=== PATIENT | male | born 1950 | race Caucasian/White ===

== ENCOUNTER 2016-11-17 08:57 | Day surgery (SDC) | payer MEDICARE, BC ==
[~2016-11-17 08:57] MED LIST: Sodium Chloride 0.9% 10 ML Syringe FLUSH PRN
[2016-11-17] MEDS ORDERED: Sodium Chloride 0.9% 1,000 ML IV SCH (09:15)
[2016-11-17] MEDS ORDERED: Propofol 200 MG/20 ML SDV ONE (10:45)
[2016-11-17] MEDS ORDERED: Atropine 0.4 MG/ML SDV ONE (10:45)
[2016-11-17] MEDS ORDERED: Midazolam 1 MG/ML 5 ML SDV ONE (10:45)
[2016-11-17] MEDS ORDERED: Glycopyrrolate 0.2 MG/ML 2 ML SDV ONE (10:45)
--- NOTE | 2016-11-17 13:00 | OR ---
DATE OF OPERATION: 11/17/2016 PREOPERATIVE DIAGNOSIS: Gastroesophageal reflux disease. POSTOPERATIVE DIAGNOSES: 1. Gastroesophageal reflux disease. 2. Small hiatal hernia. OPERATION: Esophagogastroduodenoscopy with biopsies. COMPLICATIONS: None. DRAINS: None. SPECIMENS: Distal esophageal biopsy. ESTIMATED BLOOD LOSS: Minimal. ANESTHESIA: General propofol anesthesia. INDICATION: Mr. Adorno is a 66-year-old gentleman who is on medication for heartburn and gastroesophageal reflux disease. This seems to have gotten worse with reduced control. The above-mentioned procedure was explained. The risks, benefits, and complications were explained. The patient understood and agreed and was brought to the operating room. DESCRIPTION OF PROCEDURE: The patient was brought to the operating room and placed in a left lateral decubitus position on the operating room table. Satisfactory general propofol anesthesia was administered. A mouth guard was placed. We placed the endoscope into the oral cavity, and by direct visualization, advanced this to the second portion of the duodenum. The duodenum was then evaluated on withdrawal, which appeared normal. The duodenum appeared normal. The stomach was carefully evaluated and showed some mild erythema in the antrum, however, no other changes were identified. This may suggest mild gastritis. Next, in retroflexion maneuver, there was a Hill grade 2 GE junction with a small 1 cm sliding-type hiatal hernia. The rest of the stomach was normal. We then suctioned, decompressed the stomach, and careful evaluation of the GE junction revealed a few tongues of gastric-type mucosa, did not appear to be grossly Briseno's, however, these were biopsied at 1 cm intervals and placed together for a specimen from the distal esophagus. The Z-line was irregular. The remainder of the esophagus was normal. The endoscope was then subsequently withdrawn. There were no complications. Instrument count was correct. The patient was awoken in the OR and taken to PACU for recovery. JAIRO/JOSE /[id number]
[2016-11-17 15:10] VITALS: BP 141/81
== END 2016-11-17 12:33 | disposition home or self-care (01) ==
LOC: LB.SDS 08:57
PROVIDERS: ATTEND Surgery
DX: K31.89 Other diseases of stomach and duodenum (principal); K44.9 Diaphragmatic hernia without obstruction or gangrene; Z88.8 Allergy status to other drugs, medicaments and biological substances; Z79.899 Other long term (current) drug therapy; Z91.030 Bee allergy status
CPT/HCPCS: 43239; 88305; J0461; J2250; J2704; J7040; J3490

== ENCOUNTER 2017-01-19 02:46 | Emergency (ER) | payer MEDICARE, BC ==
[2017-01-19] MEDS ORDERED: Diltiazem 25 MG/5 ML SDV IVPUSH ONE (03:19)
[2017-01-19 03:28] VITALS: BP 142/88
[2017-01-19] MEDS ORDERED: Sodium Chloride 0.9% 1,000 ML IV SCH (03:45)
--- NOTE | 2017-01-19 17:38 | ER ---
HISTORY OF PRESENT ILLNESS: A 66-year-old male here with his with complaints of an irregular heartbeat. He tells me he feels like his heart is galloping. He is not having any chest pain. No problems with shortness of breath. The patient states that it just started during the night tonight. He did take a little smaller dose of atenolol, he has been taking atenolol to help control his heartbeat as he has a history of fast heartbeat and has had a history of atrial fibrillation once in the past. The patient has not been sick recently and states that he otherwise feels okay. PAST MEDICAL HISTORY: The patient did have a history of chest pain about 10 years ago. 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 He further tells me that after this is when he had his first episode of atrial fibrillation. The patient has never been on Coumadin. His rate has been controlled with medication. CURRENT MEDICATIONS: Zantac, atenolol, lisinopril and Nexium. PHYSICAL EXAMINATION: GENERAL APPEARANCE: The patient is awake and alert. No respiratory distress. VITAL SIGNS: Reviewed. Blood pressure initially 142/88, O2 sats are 99%, respirations 12, he is afebrile, pulse of 117. CARDIAC: Heart sounds distinct with a slightly irregular rate. No murmurs noted. LUNGS: Clear. SKIN: Warm and dry. Oral mucous membranes are moist. EXTREMITIES: The patient has no lower extremity edema. SKIN: Warm and intact on both extremities. An EKG was obtained showing atrial fibrillation. LABORATORY DATA: Today include a CBC, which is normal. Comprehensive metabolic panel was also normal. Troponin is normal. The patient was given Cardizem 20 mg IV and he converted to normal sinus rhythm almost immediately on the monitor. I did give the patient about 500 mL of IV normal saline. The patient states that his gallop and heart rhythm went away as soon as we gave him the medication, which is Cardizem. A followup EKG was obtained, this does show some atrial flutter, but the patient is totally asymptomatic at this time. DIAGNOSIS: Atrial fibrillation, converted to atrial flutter in the emergency room. The patient is now asymptomatic. TREATMENT PLAN: I advised the patient to resume his full dose of atenolol tomorrow. He will be discharged home. He does have a followup appointment on Sunday with his primary care provider, he is to keep that appointment time. Followup should be sooner in the ER if he becomes symptomatic once again. The patient has no further questions. JOSE/JOSE /[id number]
== END 2017-01-19 04:10 | disposition home or self-care (01) ==
LOC: LB.ED 02:46
DX: I48.91 Unspecified atrial fibrillation (principal); I48.92 Unspecified atrial flutter; Z98.890 Other specified postprocedural states; Z79.899 Other long term (current) drug therapy
CPT/HCPCS: 36415; 80053; 84484; 85025; 93005; 96374; 99284; 99285; J7040; J3490

== ENCOUNTER 2017-01-20 08:53 | Emergency (ER) | payer MEDICARE, BC ==
--- NOTE | 2017-01-20 09:18 | EDM.PDOC ---
ED HPI GENERAL MEDICAL PROBLEM - General Time Seen by Provider: 01/20/17 08:55 Source of Information: Reports: Patient History Limitations: Reports: No Limitations - History of Present Illness INITIAL COMMENTS - FREE TEXT/NARRATIVE: According to patient he claims that he has been feeling tired and weak for the past 2 days. He feels like his heart rate is irregular or skips beat at times and resolves. No chest pain or discomfort. No diaphoresis. No nausea or vomiting. He was seen 24 hrs ago in the emergency room. Had EKG which showed atrial fibrillation. He had complete work, up with CBC and CMP which were normal. He received a shot of Diltiazem and reassured and discharged. Pt returned to emergency room today as he still feels the missed beats.Pt claims that he is very anxious as he has had significant cardiac history with excision of left atrial myxoma in 2006. presently asymptomatic other than anxiety. Onset: Gradual Onset Date: 01/18/17 Onset Time: 03:00 Severity: Mild Improves with: Reports: None Worsens with: Reports: None Associated Symptoms: Reports: No Other Symptoms - Related Data Allergies Allergy/AdvReac Type Severity Reaction Status Date / Time celecoxib [From Celebrex] Allergy Hives Verified 01/20/17 09:23 hydrochlorothiazide Allergy Dizziness Verified 01/20/17 09:23 Home Meds: Home Meds Esomeprazole Magnesium [Nexium] 40 mg PO DAILY 12/17/15 [History] Lisinopril 20 mg PO BID 12/17/15 [History] Atenolol 25 mg PO DAILY 01/19/17 [History] Ranitidine HCl [Zantac] 300 mg PO DAILY 01/19/17 [History] Past Medical History HEENT History: Reports: Epistaxis, Impaired Vision, Other (See Below) Other HEENT History: barett's espohagus Cardiovascular History: Reports: Hypertension, NC, Other (See Below) Other Cardiovascular History: cardiac tumor Respiratory History: Reports: Other (See Below) Other Respiratory History: NOT DIAGNOSED BUT FEELS HE MIGHT HAVE A BRONCHITIS Gastrointestinal History: Reports: GERD Genitourinary History: Reports: BPH Musculoskeletal History: Reports: Other (See Below) Other Musculoskeletal History: POST POLIO LEFT LEG Neurological History: Reports: Other (See Below) Other Neuro History: POLIO LEFT LEG Psychiatric History: Reports: Anxiety - Infectious Disease History Infectious Disease History: Reports: Other (See Below) Other Infectious Disease History: UNSURE - Past Surgical History HEENT Surgical History: Reports: Other (See Below) Other HEENT Surgeries/Procedures: esophageal ablation Cardiovascular Surgical History: Reports: Other (See Below) Other Cardiovascular Surgeries/Procedures: cardiac tumor removal Male Surgical History: Reports: Circumcision Social & Family History - Family History Cardiac: Reports: Heart Failure, NC GI: Reports: GERD Musculoskeletal: Reports: Arthritis, Back pain, Chronic, Neck Pain, Chronic, Osteoarthritis Neurological: Reports: Parkinson's Psychiatric: Reports: Anxiety, Depression Endocrine/Metabolic: Reports: Hyperthyroidism Oncologic: Reports: Breast - Tobacco Use Smoking Status *Q: Former Smoker Years of Tobacco use: 10 Packs/Tins Daily: 1.5 Used Tobacco, but Quit: Yes Month Tobacco Last Used: 1980 Second Hand Smoke Exposure: No - Caffeine Use Caffeine Use: Reports: None Caffeine Use Comment: 8 WEEKS SINCE LAST CUP OF COFFEE - Alcohol Use Days Per Week of Alcohol Use: 7 Number of Drinks Per Day: 3 Total Drinks Per Week: 21 - Recreational Drug Use Recreational Drug Use: No ED ROS GENERAL - Review of Systems Review Of Systems: See Below Constitutional: Reports: Weakness. Denies: Fever, Chills, Fatigue HEENT: Denies: Rhinitis, Throat Pain, Throat Swelling Respiratory: Denies: Shortness of Breath, Wheezing, Cough, Sputum Cardiovascular: Denies: Chest Pain, Lightheadedness GI/Abdominal: Denies: Abdominal Pain, Nausea, Vomiting : Denies: Flank Pain, Frequency, Hematuria Musculoskeletal: Denies: Joint Pain, Joint Swelling Skin: Denies: Pruritis, Rash Neurological: Denies: Confusion, Dizziness, Seizure, Syncope, Gait Disturbance Psychiatric: Reports: Anxiety. Denies: Agitation, Confusion ED EXAM, GENERAL - Physical Exam Exam: See Below Exam Limited By: No Limitations General Appearance: Alert, WD/WN, No Apparent Distress, Anxious Ears: Normal External Exam, Normal Canal, Hearing Grossly Normal, Normal TMs Ear Exam: Bilateral Ear: Auricle Normal, Canal Normal, TM normal Nose: Normal Inspection, Normal Mucosa, No Blood Throat/Mouth: Normal Inspection, Normal Lips, Normal Teeth, Normal Gums, Normal Oropharynx, Normal Voice, No Airway Compromise Head: Atraumatic, Normocephalic Neck: Normal Inspection, Supple, Non-Tender, Full Range of Motion Respiratory/Chest: No Respiratory Distress, Lungs Clear, Normal Breath Sounds, No Accessory Muscle Use, Chest Non-Tender Cardiovascular: No Edema, No Gallop, No JVD, No Murmur, No Rub, Irregularly Irregular Peripheral Pulses: 2+: Radial (L), Radial (R) GI/Abdominal: Normal Bowel Sounds, Soft, Non-Tender, No Organomegaly, No Distention, No Abnormal Bruit, No Mass Extremities: Normal Inspection, Normal Range of Motion, Non-Tender, Normal Capillary Refill, No Pedal Edema Neurological: Alert, Oriented EKG INTERPRETATION EKG Date: 01/20/17 Rhythm: a-fib Rate (beats/min): 95 [place]: normal QRS: normal ST-T: normal QT: normal Course - Vital Signs Text/Narrative:: Pt was just seen sex therapist with complaints of racing heart. He was in Atril fibrillation with heart rate in 116/min. He did receive 20 mg cardizem IV and his rate dropped into 50s and felt better. Pt was monitored in the emergency room for an hour and as he felt better, was discharged home and advised to followup with his primary care provider, . Pt has appointment for 01/22/17 with him. On today's visit, his heart rate is irregularly irregular and his rate is running between 80-90s. His vital sare stable. He did have normal CBC , CMP and troponins just 24 hrs ago, hence I am not repeating it. also his is not in rapid ventricular rate. I did get his TSH which is normal. Hence I have added Cardizem CD 120mg daily. Also I have counselled him on Anticoagulation. He does agree to it. His INR is 1.1.I have started him on lovenox 90mg S/C twice daily for next 5 days. Also started him on coumadin 5mg daily for next 3 days and should have repeat INR on sunday. 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 Return to emergency room if he develops severe chest pain, tightness, nausea , vomiting, shortness of breath, Last Recorded V/S: Last Vital Signs Temp Pulse 67 01/20/17 09:44 Resp BP 132/83 01/20/17 09:44 Pulse Ox - Orders/Labs/Meds Orders: Active Orders 24 hr Category Date Time Status EKG Documentation Completion [RC] ASDIRECTED Care 01/20/17 09:10 Active INR,PT,PROTHROMBIN TIME [COAG] Stat Lab 01/20/17 09:50 Ordered TSH ULTRASENSITIVE [CHEM] Stat Lab 01/20/17 03:30 Received Diltiazem [Cardizem CD] Med 01/20/17 09:45 Ordered 120 mg PO DAILY EKG 12 Lead [EK] Routine Ther 01/20/17 09:09 Ordered Medication Orders Diltiazem HCl (Cardizem Cd) 120 mg PO DAILY LISA Last Admin: 01/20/17 09:44 Dose: 120 mg Meds: Medications Generic Name Dose Route Start Last Admin Trade Name Freq PRN Reason Stop Dose Admin Diltiazem HCl 120 mg 01/20/17 09:45 01/20/17 09:44 Cardizem Cd PO 120 mg DAILY LISA Administration Discontinued Medications Generic Name Dose Route Start Last Admin Trade Name Freq PRN Reason Stop Dose Admin Diltiazem HCl Confirm 01/20/17 09:39 01/20/17 09:44 Cardizem Cd Administered 01/20/17 09:40 Not Given Dose 120 mg .ROUTE .STK-MED ONE Departure - Departure Time of Disposition: 10:30 Disposition: Home, Self-Care 01 Condition: fair Clinical Impression: Atrial fibrillation - Discharge Information Instructions: Diltiazem tablets Referrals: PCP,None [Primary Care Provider] - Forms: ED Department Discharge Additional Instructions: Pt was just seen sex therapist with complaints of racing heart. He was in Atril fibrillation with heart rate in 116/min. He did receive 20 mg cardizem IV and his rate dropped into 50s and felt better. Pt was monitored in the emergency room for an hour and as he felt better, was discharged home and advised to followup with his primary care provider, . Pt has appointment for 01/22/17 with him. On today's visit, his heart rate is irregularly irregular and his rate is running between 80-90s. His vital sare stable. He did have normal CBC , CMP and troponins just 24 hrs ago, hence I am not repeating it. also his is not in rapid ventricular rate. I did check his TSH and is normal. Hence I have added Cardizem CD 120mg daily. Also I have counselled him on Anticoagulation. He does agree to it. His INR is 1.1.I have started him on lovenox 90mg S/C twice daily for next 5 days. Also started him on coumadin 5mg daily for next 3 days and should have repeat INR on sunday. 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 Return to emergency room if he develops severe chest pain, tightness, nausea , vomiting, shortness of breath, - Problem List & Annotations (1) Atrial fibrillation SNOMED Code(s): 43253043 Code(s): I48.91 - UNSPECIFIED ATRIAL FIBRILLATION Status: Acute Current Visit: Yes - Problem List Review Problem List Initiated/Reviewed/Updated: Yes - My Orders Last 24 Hours: My Active Orders 01/20/17 03:30 TSH ULTRASENSITIVE [CHEM] Stat 01/20/17 09:09 EKG 12 Lead [EK] Routine 01/20/17 09:10 EKG Documentation Completion [RC] ASDIRECTED 01/20/17 09:45 Diltiazem [Cardizem CD] 120 mg PO DAILY 01/20/17 09:50 INR,PT,PROTHROMBIN TIME [COAG] Stat - Assessment/Plan Last 24 Hours: My Active Orders 01/20/17 03:30 TSH ULTRASENSITIVE [CHEM] Stat 01/20/17 09:09 EKG 12 Lead [EK] Routine 01/20/17 09:10 EKG Documentation Completion [RC] ASDIRECTED 01/20/17 09:45 Diltiazem [Cardizem CD] 120 mg PO DAILY 01/20/17 09:50 INR,PT,PROTHROMBIN TIME [COAG] Stat Assessment:: atrial fibrillation Plan: Pt was just seen sex therapist with complaints of racing heart. He was in Atril fibrillation with heart rate in 116/min. He did receive 20 mg cardizem IV and his rate dropped into 50s and felt better. Pt was monitored in the emergency room for an hour and as he felt better, was discharged home and advised to followup with his primary care provider, . Pt has appointment for 01/22/17 with him. On today's visit, his heart rate is irregularly irregular and his rate is running between 80-90s. His vital sare stable. He did have normal CBC , CMP and troponins just 24 hrs ago, hence I am not repeating it. also his is not in rapid ventricular rate. His TSh done today is normal.Hence I have added Cardizem CD 120mg daily. Also I have counselled him on Anticoagulation. He does agree to it. His INR is 1.1.I have started him on lovenox 90mg S/C twice daily for next 5 days. Also started him on coumadin 5mg daily for next 3 days and should have repeat INR on sunday. 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 Return to emergency room if he develops severe chest pain, tightness, nausea , vomiting, shortness of breath,
[2017-01-20] MEDS ORDERED: Diltiazem 120 MG Cap.CD ONE ×2 (09:39→09:45)
[2017-01-20] MEDS ORDERED: Warfarin 5 MG Tab ONE ×2 (09:45→10:00)
[2017-01-20] MEDS ORDERED: Enoxaparin 80 MG/0.8 ML Syringe ONE (09:45)
[2017-01-20] MEDS ORDERED: Diltiazem 120 MG Cap.CD PO SCH (09:45)
[2017-01-20 09:49] VITALS: BP 132/83
[2017-01-20] MEDS: Enoxaparin 80 MG/0.8 ML Syringe ONE ×2 (10:09→15:40)
[2017-01-20] MEDS ORDERED: Enoxaparin 80 MG/0.8 ML Syringe SUBCUT SCH (20:00)
== END 2017-01-20 10:30 | disposition home or self-care (01) ==
LOC: LB.ED 08:53
DX: I48.91 Unspecified atrial fibrillation (principal); I10 Essential (primary) hypertension; I25.2 Old myocardial infarction; K21.9 Gastro-esophageal reflux disease without esophagitis; F41.9 Anxiety disorder, unspecified; Z88.8 Allergy status to other drugs, medicaments and biological substances; Z79.899 Other long term (current) drug therapy; Z87.891 Personal history of nicotine dependence
CPT/HCPCS: 36415; 84443; 85610; 93005; 96372; 99285; A9270; J1650; 99284

== ENCOUNTER 2017-04-09 08:09 | Emergency (ER) | payer MEDICARE, BC ==
--- NOTE | 2017-04-09 08:32 | EDM.PDOC ---
[id number]: dizziness Time Seen by Provider: 04/09/17 08:15 Source of Information: Reports: Patient History Limitations: Reports: No Limitations, Other (generalized weakness) - History of Present Illness INITIAL COMMENTS - FREE TEXT/NARRATIVE: This 66 yr male presents with dizziness and right sided tremor to hand and weakness with walking. States he took his medication this am and took shower and symptoms of dizziness became worse. States visit with biofuels production technician about 2 weeks ago and Cardizem was increased to 240 mg. He had adjustment of Atenolol and has been back on that for about 1 week ago. States some chest tightness now 835. ASA PO given. Pt took his am medications. States hx of atrial fibrillation and was medically converted with cardizem. Also recent hx of esophageal ablation and hx of GERD. States some upper GI distress now. No pain with palpation to abdomen. Abdomen is soft and non-distended. 8:44 GI cocktail ordered. Symptoms improved within 10 minutes. No more pressure to chest or abdomen. 9:18am states dizziness is better. Heart rate has been 48 to 52 in the ER. Pt has been alert and talkative. has been with him during this visit. 950 am Reviewed pt status with Dr Sanabria. Recommend D/c Atenolol if pulse remains in 40's. Discussed option with pt and and state sometimes the pulse had been up to 100 without Atenolol. Pt states he hadn't been drinking as much fluids over the last couple days and had been busy with a garage sale. IV fluids increased to bolus 500cc IV fluids. Instructed pt to take Atenolol later in day and increase fluids. Pt to follow-up with biofuels production technician Sunday. Tremor is gone, dizziness is better. Some burning continues to upper GI and throat. States GI cocktail really helps with that. out to walk their dog briefly. 10:10 Pt has been resting well with head of bed elevated. States dizziness, weakness, chest tightness and abdomen pressure are improved. Will order GI cocktail to have at home prn daily, until pt has his return appointment with the surgeon for his GERD. Will refill Atenolol 25 mg tablets and pt to cut in half and instructed to take daily in afternoon or at supper if Pulse greater than 60. Pt has BP monitor at home to check BP and pulse. Onset: Today Onset Date: 04/09/17 Onset Time: 08:00 Duration: Constant Location: Reports: Chest, Abdomen Other Treatments [employer]: home medications - Related Data Allergies Allergy/AdvReac Type Severity Reaction Status Date / Time celecoxib [From Celebrex] Allergy Hives Verified 01/20/17 09:23 hydrochlorothiazide Allergy Dizziness Verified 01/20/17 09:23 Home Meds: Home Meds Esomeprazole Magnesium [Nexium] 40 mg PO DAILY 12/17/15 [History] Ranitidine HCl [Zantac] 300 mg PO DAILY 01/19/17 [History] ALPRAZolam [Alprazolam] 0.5 mg PO BID PRN 04/09/17 [History] Atenolol 12.5 mg PO DAILY 04/09/17 [History] Diltiazem [Cardizem CD] 240 mg PO DAILY 04/09/17 [History] Lisinopril 20 mg PO BID 04/09/17 [History] Sildenafil [Revatio] 10 mg PO DAILY 04/09/17 [History] Warfarin Sodium [Jantoven] 5 mg PO DAILY 04/09/17 [History] Past Medical History HEENT History: Reports: Epistaxis, Impaired Vision, Other (See Below) Other HEENT History: barett's espohagus Cardiovascular History: Reports: Hypertension, [place], Other (See Below) Other Cardiovascular History: cardiac tumor Respiratory History: Reports: Other (See Below) Other Respiratory History: NOT DIAGNOSED BUT FEELS HE MIGHT HAVE A BRONCHITIS Gastrointestinal History: Reports: GERD Genitourinary History: Reports: BPH Musculoskeletal History: Reports: Other (See Below) Other Musculoskeletal History: POST POLIO LEFT LEG Neurological History: Reports: Other (See Below) Other Neuro History: POLIO LEFT LEG Psychiatric History: Reports: Anxiety - Infectious Disease History Infectious Disease History: Reports: Other (See Below) Other Infectious Disease History: UNSURE - Past Surgical History HEENT Surgical History: Reports: Other (See Below) Other HEENT Surgeries/Procedures: esophageal ablation Cardiovascular Surgical History: Reports: Other (See Below) Other Cardiovascular Surgeries/Procedures: cardiac tumor removal Male Surgical History: Reports: Circumcision Social & Family History - Family History Cardiac: Reports: Heart Failure, AR GI: Reports: GERD Musculoskeletal: Reports: Arthritis, Back pain, Chronic, Neck Pain, Chronic, Osteoarthritis Neurological: Reports: Parkinson's Psychiatric: Reports: Anxiety, Depression Endocrine/Metabolic: Reports: Hyperthyroidism Oncologic: Reports: Breast - Tobacco Use Smoking Status *Q: Former Smoker Years of Tobacco use: 10 Packs/Tins Daily: 1.5 Used Tobacco, but Quit: Yes Month Tobacco Last Used: 1980 Second Hand Smoke Exposure: No - Caffeine Use Caffeine Use: Reports: None Caffeine Use Comment: 8 WEEKS SINCE LAST CUP OF COFFEE - Alcohol Use Days Per Week of Alcohol Use: 7 Number of Drinks Per Day: 3 Total Drinks Per Week: 21 - Recreational Drug Use Recreational Drug Use: No ED ROS GENERAL - Review of Systems Review Of Systems: See Below Constitutional: Denies: Fever, Chills HEENT: Reports: Glasses Respiratory: Denies: Shortness of Breath, Cough Cardiovascular: Reports: Lightheadedness GI/Abdominal: Reports: Abdominal Pain, Diarrhea, Other (states loose stool last night, states has been his normal lately for last 2 months, takes Maalox and tums at home, usually every day.). Denies: Constipation, Distension, Nausea Musculoskeletal: Reports: Other (tremor right hand) Skin: Reports: No Symptoms Neurological: Reports: Dizziness Psychiatric: Reports: No Symptoms Hematologic/Lymphatic: Reports: No Symptoms Immunologic: Reports: No Symptoms ED EXAM, GENERAL - Physical Exam Exam: See Below Exam Limited By: No Limitations General Appearance: Alert, No Apparent Distress Eye Exam: Left Eye: PERRL Ears: Normal External Exam, Normal Canal, Other (Pressure to ears) Nose: Normal Inspection Head: Atraumatic Neck: Normal Inspection Respiratory/Chest: No Respiratory Distress, Lungs Clear Cardiovascular: Regular Rate, Rhythm, No Edema, Bradycardia GI/Abdominal: Normal Bowel Sounds, Non-Tender, No Distention Extremities: Normal Inspection, Non-Tender, Other (Tremor to right hand on admission) Neurological: Alert, Oriented Psychiatric: Normal Affect Skin Exam: Warm, Normal Color Course - Vital Signs Last Recorded V/S: Last Vital Signs Temp 98.6 F 04/09/17 08:26 Pulse 63 04/09/17 08:26 Resp 12 04/09/17 08:26 BP 148/71 H 04/09/17 08:26 Pulse Ox 98 04/09/17 08:26 - Orders/Labs/Meds Orders: Active Orders 24 hr Category Date Time Status EKG Documentation Completion [RC] ASDIRECTED Care 04/09/17 08:32 Active Labs: Laboratory Tests 04/09/17 04/09/17 04/09/17 Range/Units 08:29 08:45 08:45 WBC (4.0-11.0) K/uL RBC (4.50-6.50) M/uL Hgb (13.0-18.0) g/dL Hct (40.0-54.0) % MCV (76-96) fL MCH (27.0-32.0) pg MCHC (31.0-35.0) g/dL RDW (11.0-16.0) % Plt Count (150-400) K/uL MPV (6.0-10.0) fL Neut % (Auto) (45.0-70.0) % Lymph % (Auto) (20.0-40.0) % Emmet % (Auto) (3.0-10.0) % Eos % (Auto) (1.0-5.0) % Baso % (Auto) (0.0-0.5) % Neut # (Auto) (2.00-7.50) K/uL Lymph # (Auto) (1.50-4.00) K/uL Emmet # (Auto) (0.20-0.80) K/uL Eos # (Auto) (0.04-0.40) K/uL Baso # (Auto) (0.02-0.10) K/uL PT 15.5 H D (9.0-11.5) sec INR 1.6 D (1.0-3.5) APTT 28.8 (27.0-35.0) SECONDS Sodium 140 (136-145) mmol/L Potassium 3.8 (3.5-5.1) mmol/L Chloride 105 (98-107) mmol/L Carbon Dioxide 25.6 (21.0-32.0) mmol/L Anion Gap 13.2 (5.0-15.0) mmol/L BUN 14 (8-26) mg/dL Creatinine 1.22 (0.70-1.30) mg/dL Est Cr Clr Drug Dosing TNP Estimated GFR (MDRD) 59 L (>60) MLS/MIN BUN/Creatinine Ratio 11.5 (6-25) Glucose 115 H (74-100) mg/dL POC Glucose 95 (74-110) mg/dL Calcium 9.1 (8.5-10.1) mg/dL Total Bilirubin 0.8 D (0.0-1.0) mg/dL AST 22 (15-37) U/L ALT 41 (12-78) U/L Alkaline Phosphatase 67 (46-116) U/L Troponin I < 0.017 (0.000-0.060) ng/mL Total Protein 7.2 (6.4-8.2) g/dL Albumin 3.9 (3.4-5.0) g/dL Globulin 3.3 (2.2-4.2) g/dL Albumin/Globulin Ratio 1.2 (0.8-2.0) 04/09/17 Range/Units 08:50 WBC 4.4 D (4.0-11.0) K/uL RBC 4.59 (4.50-6.50) M/uL Hgb 14.0 (13.0-18.0) g/dL Hct 41.5 (40.0-54.0) % MCV 90 (76-96) fL MCH 30.5 (27.0-32.0) pg MCHC 33.7 (31.0-35.0) g/dL RDW 13.1 (11.0-16.0) % Plt Count 175 (150-400) K/uL MPV 10.6 H (6.0-10.0) fL Neut % (Auto) 53.3 (45.0-70.0) % Lymph % (Auto) 34.3 (20.0-40.0) % Emmet % (Auto) 9.5 (3.0-10.0) % Eos % (Auto) 2.0 (1.0-5.0) % Baso % (Auto) 0.9 H (0.0-0.5) % Neut # (Auto) 2.36 (2.00-7.50) K/uL Lymph # (Auto) 1.52 (1.50-4.00) K/uL Emmet # (Auto) 0.42 (0.20-0.80) K/uL Eos # (Auto) 0.09 (0.04-0.40) K/uL Baso # (Auto) 0.04 (0.02-0.10) K/uL PT (9.0-11.5) sec INR (1.0-3.5) APTT (27.0-35.0) SECONDS Sodium (136-145) mmol/L Potassium (3.5-5.1) mmol/L Chloride (98-107) mmol/L Carbon Dioxide (21.0-32.0) mmol/L Anion Gap (5.0-15.0) mmol/L BUN (8-26) mg/dL Creatinine (0.70-1.30) mg/dL Est Cr Clr Drug Dosing Estimated GFR (MDRD) (>60) MLS/MIN BUN/Creatinine Ratio (6-25) Glucose (74-100) mg/dL POC Glucose (74-110) mg/dL Calcium (8.5-10.1) mg/dL Total Bilirubin (0.0-1.0) mg/dL AST (15-37) U/L ALT (12-78) U/L Alkaline Phosphatase (46-116) U/L Troponin I (0.000-0.060) ng/mL Total Protein (6.4-8.2) g/dL Albumin (3.4-5.0) g/dL Globulin (2.2-4.2) g/dL Albumin/Globulin Ratio (0.8-2.0) Meds: Medications Discontinued Medications Generic Name Dose Route Start Last Admin Trade Name Freq PRN Reason Stop Dose Admin Al Hydroxide/Mg Hydroxide 30 ml 04/09/17 08:45 04/09/17 08:40 Gi Cocktail PO 04/09/17 08:46 30 ml ONETIME ONE Administration Aspirin 324 mg 04/09/17 08:57 04/09/17 08:20 Aspirin PO 04/09/17 08:58 324 mg ONETIME ONE Administration Sodium Chloride 1,000 mls @ 0 mls/hr 04/09/17 08:45 04/09/17 08:10 Normal Saline IV 04/13/17 08:35 50 mls/hr ASDIRECTED LISA Administration KVO Departure - Departure Time of Disposition: 10:34 (Discussed bradycardia with pt and hold Atenolol in am if pulse is less than 60. Recommend taking in afternoon daily if Pulse is greater than 60. Recommend to rest today and improve hydration. Follow-up with biofuels production technician appointment, as planned on Sunday. Return to ER if symptoms of dizziness and weakness return.) Disposition: Home, Self-Care 01 Condition: Good Clinical Impression: Bradycardia by electrocardiogram, Dehydration symptoms, Dizziness, nonspecific Instructions: Bradycardia, Dehydration, Adult, [id number], Atenolol tablets Referrals: PCP,None [Primary Care Provider] - Forms: ED Department Discharge Additional Instructions: If continuing atenolol then you need to drink medication. Take pulse before taking atenolol,and if pulse is below 55 then wait until afternoon to take medication. - My Orders Last 24 Hours: My Active Orders 04/09/17 08:32 EKG Documentation Completion [RC] ASDIRECTED - Assessment/Plan Last 24 Hours: My Active Orders 04/09/17 08:32 EKG Documentation Completion [RC] ASDIRECTED
[2017-04-09] MEDS ORDERED: Sodium Chloride 0.9% 1,000 ML IV SCH (08:45)
[2017-04-09] MEDS ORDERED: GI Cocktail Oral Solution 30 ML PO ONE (08:45)
[2017-04-09] MEDS ORDERED: Aspirin 81 MG Tab.Chew PO ONE (08:57)
[2017-04-09 09:08] VITALS: BP 148/71
== END 2017-04-09 10:10 | disposition home or self-care (01) ==
LOC: LB.ED 08:09
DX: R00.1 Bradycardia, unspecified (principal); I10 Essential (primary) hypertension; I25.2 Old myocardial infarction; I50.9 Heart failure, unspecified; K21.9 Gastro-esophageal reflux disease without esophagitis; F41.9 Anxiety disorder, unspecified; Z87.891 Personal history of nicotine dependence; Z88.8 Allergy status to other drugs, medicaments and biological substances; Z88.6 Allergy status to analgesic agent; Z79.01 Long term (current) use of anticoagulants; Z79.899 Other long term (current) drug therapy
CPT/HCPCS: 36415; 80053; 82962; 84484; 85025; 85610; 85730; 93005; 96360; 96361; 99284; A9270; J7040

== ENCOUNTER 2017-09-06 12:25 | Observation (INO) | payer MEDICARE, BC ==
[2017-09-06] MEDS ORDERED: Aspirin 81 MG Tab.Chew PO ONE (12:33)
[2017-09-06] MEDS ORDERED: Nitroglycerin 0.4 MG Tab.SL SL ONE (12:50)
--- NOTE | 2017-09-06 14:07 | PCM.HP ---
H&P History of Present Illness - General Date of Service: 09/06/17 Admit Problem/Dx: Admission Diagnosis/Problem Admission Diagnosis/Problem Chest heaviness Source of Information: Patient History Limitations: Reports: No Limitations - History of Present Illness Initial Comments - Free Text/Narative: This is a 67yo M here for left sided chest pressure for the past 45minutes that started when walking in the store with his . He states he felt some pressure for the past 2 days but nothing that lasted like this last episode. Denies any shortness of breath, no recent sickness or other health concerns. Onset of Symptoms: Reports: Sudden Duration of Symptoms: Reports: Minutes:, Constant Location: Reports: Chest Quality: Reports: Pressure Severity: Mild Improves with: Reports: None Worsens with: Reports: None Associated Symptoms: Reports: No Other Symptoms - Related Data Allergies/Adverse Reactions: Allergies Allergy/AdvReac Type Severity Reaction Status Date / Time celecoxib [From Celebrex] Allergy Hives Verified 01/20/17 09:23 hydrochlorothiazide Allergy Dizziness Verified 01/20/17 09:23 Home Medications: Home Meds Esomeprazole Magnesium [Nexium] 40 mg PO DAILY 12/17/15 [History] Ranitidine HCl [Zantac] 300 mg PO DAILY 01/19/17 [History] ALPRAZolam [Alprazolam] 0.5 mg PO BID PRN 04/09/17 [History] Atenolol 12.5 mg PO DAILY 04/09/17 [History] Diltiazem [Cardizem CD] 240 mg PO DAILY 04/09/17 [History] Lisinopril 20 mg PO BID 04/09/17 [History] Sildenafil [Revatio] 10 mg PO DAILY 04/09/17 [History] Warfarin Sodium [Jantoven] 5 mg PO DAILY 04/09/17 [History] Past Medical History HEENT History: Reports: Epistaxis, Impaired Vision, Other (See Below) Other HEENT History: barett's espohagus Cardiovascular History: Reports: Hypertension, [place], Other (See Below) Other Cardiovascular History: cardiac tumor Respiratory History: Reports: Other (See Below) Other Respiratory History: NOT DIAGNOSED BUT FEELS HE MIGHT HAVE A BRONCHITIS Gastrointestinal History: Reports: GERD Genitourinary History: Reports: BPH Musculoskeletal History: Reports: Other (See Below) Other Musculoskeletal History: POST POLIO LEFT LEG Neurological History: Reports: Other (See Below) Other Neuro History: POLIO LEFT LEG Psychiatric History: Reports: Anxiety - Infectious Disease History Infectious Disease History: Reports: Other (See Below) Other Infectious Disease History: UNSURE - Past Surgical History HEENT Surgical History: Reports: Other (See Below) Other HEENT Surgeries/Procedures: esophageal ablation Cardiovascular Surgical History: Reports: Other (See Below) Other Cardiovascular Surgeries/Procedures: cardiac tumor removal Male Surgical History: Reports: Circumcision Social & Family History - Family History Family Medical History: Noncontributory Cardiac: Reports: Heart Failure, ND GI: Reports: GERD Musculoskeletal: Reports: Arthritis, Back pain, Chronic, Neck Pain, Chronic, Osteoarthritis Neurological: Reports: Parkinson's Psychiatric: Reports: Anxiety, Depression Endocrine/Metabolic: Reports: Hyperthyroidism Oncologic: Reports: Breast - Tobacco Use Smoking Status *Q: Former Smoker Years of Tobacco use: 10 Packs/Tins Daily: 1.5 Used Tobacco, but Quit: Yes Month Tobacco Last Used: 1980 Second Hand Smoke Exposure: No - Caffeine Use Caffeine Use: Reports: None Caffeine Use Comment: 8 WEEKS SINCE LAST CUP OF COFFEE - Alcohol Use Days Per Week of Alcohol Use: 7 Number of Drinks Per Day: 3 Total Drinks Per Week: 21 - Recreational Drug Use Recreational Drug Use: No H&P Review of Systems - Review of Systems: Review Of Systems: ROS reveals no pertinent complaints other than HPI. Exam - Exam Exam: See Below - Exam General: Alert, Oriented HEENT: PERRLA Neck: Supple, Trachea Midline Lungs: Clear to Auscultation, Normal Respiratory Effort Cardiovascular: Regular Rate, Regular Rhythm GI/Abdominal Exam: Normal Bowel Sounds, Soft, Non-Tender Extremities: Normal Inspection, Normal Range of Motion Neuro Extensive - Mental Status: Alert, Oriented x3, Normal Mood/Affect - Patient Data Result Diagrams: 09/06/17 12:40 09/06/17 12:40 *Q Meaningful Use (ADM) - VTE *Q VTE Criteria *Q: - Stroke *Q Stroke Criteria *Q: - AMI *Q AMI Criteria *Q: - Problem List (1) Chest pressure SNOMED Code(s): 213907924 ICD Code: R07.89 - OTHER CHEST PAIN Status: Acute Current Visit: Yes Problem List Initiated/Reviewed/Updated: Yes Orders Last 24hrs: Active Orders 24 hr Category Date Time Status Patient Status [ADT] Routine ADT 09/06/17 13:58 Ordered Oxygen Therapy [RC] PRN Care 09/06/17 13:58 Ordered VTE/DVT Education [RC] Per Unit Routine Care 09/06/17 13:58 Ordered Vital Signs [RC] Q4H Care 09/06/17 13:58 Ordered TROPONIN I [CHEM] Timed Lab 09/06/17 16:30 Ordered Resuscitation Status Routine Resus Stat 09/06/17 13:58 Ordered Assessment/Plan Comment:: Patient placed in observation for chest pressure r/o ACS. Repeat troponins at 1630. F/u results and continue telemetry.
--- NOTE | 2017-09-07 09:08 | PCM.DCSUM1 ---
Discharge Summary - Discharge Data Discharge Date: 09/06/17 Discharge Disposition: Home, Self-Care 01 Condition: Good - Discharge Diagnosis/Problem(s) (1) Chest pressure SNOMED Code(s): 725597087 ICD Code: R07.89 - OTHER CHEST PAIN Status: Acute Priority: High - Patient Instructions Diet: Heart Healthy Diet Activity: As Tolerated - Discharge Plan Home Medications: Home Meds Esomeprazole Magnesium [Nexium] 40 mg PO DAILY 12/17/15 [History] Ranitidine HCl [Zantac] 300 mg PO DAILY 01/19/17 [History] ALPRAZolam [Alprazolam] 0.5 mg PO BID PRN 04/09/17 [History] Atenolol 12.5 mg PO DAILY 04/09/17 [History] Diltiazem [Cardizem CD] 240 mg PO DAILY 04/09/17 [History] Lisinopril 20 mg PO BID 04/09/17 [History] Sildenafil [Revatio] 10 mg PO DAILY 04/09/17 [History] Warfarin Sodium [Jantoven] 5 mg PO DAILY 04/09/17 [History] Patient Handouts: Nonspecific Chest Pain Forms: ED Department Discharge Referrals: PCP,None [Primary Care Provider] - - Discharge Summary/Plan Comment Discharge Summary/Plan Comment: Counseled on discharge and follow up. Discussed f/u in ER for further symptoms. F/u in clinic as needed and for referral to Cardiology. - Patient Data Lab Results - Last 24 hrs: Laboratory Results - last 24 hr 09/06/17 Range/Units 16:20 Troponin I < 0.017 (0.000-0.060) ng/mL Med Orders - Current: Current Medications Discontinued Medications Aspirin (Aspirin) 324 mg PO ONETIME ONE Stop: 09/06/17 12:34 Nitroglycerin (Nitrostat) 0.4 mg SL ONETIME ONE Stop: 09/06/17 12:51 *Q Meaningful Use (DIS) - VTE *Q VTE Criteria *Q: - Stroke *Q Stroke Criteria *Q: - AMI *Q AMI Criteria *Q:
--- NOTE | 2017-09-08 13:06 | CR ---
DATE OF SERVICE: 09/06/17 CLINICAL DATA: chest pain AP PORTABLE CHEST: Comparison is made to a prior exam dated 12/17/15. The patient is status post median sternotomy. The heart size is normal. The aorta is ectatic. There is eventration of the right hemidiaphragm with atelectatic/fibrotic changes in the right lung base. There is a linear density in the left lung base consistent with linear atelectasis or fibrosis. There is a small nodular density in the right lung base just above the right hemidiaphragm. It was present on the prior exam and is unchanged. The lungs are otherwise clear. No pneumothorax. No pleural effusions. [id number] [facility]
== END 2017-09-06 17:15 | disposition home or self-care (01) ==
LOC: LB.ED 12:25 → LB.MS 13:05 → UNDOADMOB 13:05 → LB.MS 13:58
PROVIDERS: ADMIT Family Medicine; ATTEND Family Medicine
DX: R07.89 Other chest pain (principal); I10 Essential (primary) hypertension; K21.9 Gastro-esophageal reflux disease without esophagitis; N40.0 Benign prostatic hyperplasia without lower urinary tract symptoms; F41.9 Anxiety disorder, unspecified; I25.2 Old myocardial infarction; Z79.01 Long term (current) use of anticoagulants; Z79.899 Other long term (current) drug therapy; Z88.8 Allergy status to other drugs, medicaments and biological substances; Z87.891 Personal history of nicotine dependence
CPT/HCPCS: 36415; 71045; 80053; 83880; 84484; 85025; 93005; 99285; 99285-25; G0378

== ENCOUNTER 2018-03-19 12:17 | Emergency (ER) | payer MEDICARE, BC ==
[2018-03-19] MEDS ORDERED: Aspirin 81 MG Tab.Chew PO ONE (12:30)
[2018-03-19] MEDS ORDERED: Nitroglycerin 0.4 MG Tab.SL SL ONE (12:30)
[2018-03-19] MEDS ORDERED: Morphine 2 MG/ML Syringe IVPUSH ONE ×2 (12:32→13:17)
[2018-03-19] MEDS ORDERED: Morphine 2 MG/ML Syringe ONE ×2 (12:39→13:22)
[2018-03-19] MEDS ORDERED: Sodium Chloride 0.9% 1,000 ML IV SCH (13:00)
[2018-03-19] MEDS ORDERED: Clopidogrel 75 MG Tab PO ONE (13:16)
[2018-03-19] MEDS ORDERED: Nitroglycerin/D5W 25 MG/250 ML BOTTLE IV SCH (13:30)
[2018-03-19 15:11] VITALS: BP 124/65
--- NOTE | 2018-03-19 17:09 | CR ---
DATE OF SERVICE: 03/19/18 CLINICAL DATA: chest pain AP PORTABLE CHEST: Comparison is made to a prior exam dated 11/21/17. The heart size is normal. The patient is status post median sternotomy. The aorta is ectatic. There is persistent eventration of the right hemidiaphragm with persistent linear atelectasis or fibrosis in the right lung base. There is a nodular density just above the right hemidiaphragm that is not clearly seen on the prior exam. Chest CT is recommended to further evaluate this. There is minimal increased density in the left lung base consistent with basilar atelectasis or infiltrate. Pneumonia should be considered. The exam is otherwise unchanged from the prior. IMPRESSION: Abnormal exam. See above recommendation. [id number] [facility]
--- NOTE | 2018-03-19 22:17 | ER ---
HISTORY OF PRESENT ILLNESS: A 67-year-old male who comes in with his by private car with complaints of chest pressure and chest pain. He states that he also has tightness and a numb feeling involving his left arm and tightness with discomfort radiating up the left side of his neck including the left lower jaw and the left facial cheek. The patient rates his pain at 6 rate/10. He tells me it started about 10 o'clock this morning while he and his were going for a 2-mile walk. When he got home, he rested a little bit and thought he was feeling a little better. He then decided to do a project putting a few pieces of siding on the house and then the pain became significantly worse. The patient feels dizzy. He does not feel nauseated. Further questioning reveals that he has not felt well for the last couple of weeks or so, but was not having any real pain issues until today. He has had an echocardiogram about 1 month ago and was told that his ejection fraction had dropped into the mid 40s. This is by Dr. Saini, manager audit that he sees in [place]. The patient does have cardiac history. 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 The patient has not taken any aspirin and he does not have nitroglycerin to use at home. He is on warfarin for atrial fibrillation and he takes Revatio p.r.n. for erectile dysfunction, but he has not used this for quite a while he tells us. Other medications include atenolol and lisinopril. Alprazolam was taken p.r.n. OBJECTIVE: GENERAL APPEARANCE: The patient is awake and alert. No respiratory distress. VITAL SIGNS: Reviewed. Initial blood pressure is 147/71, he is afebrile, pulse of 59. INITIAL TREATMENT PLAN: Four baby aspirin were given to the patient. He was also given one nitroglycerin. This did drop his pain down to about a 4 to 5/10. His blood pressure also dropped down to 110/70. After which an IV was started and he was given 2 mg of morphine which brought his pain down to a 2. At this point, he is feeling more pressure. An EKG was obtained showing a normal sinus rhythm without any ST elevation or ST depression. LABS: Include a CBC which is normal. PT/INR reveals an INR of 2.0. Comprehensive metabolic panel is unremarkable. Creatinine is slightly elevated at 1.42. Troponin is normal. DIAGNOSIS: Unstable angina. TREATMENT PLAN: At this point, the patient's pain was starting to come back slightly. He was given another 2 mg of morphine which resolved his pain completely. I did contact hospitalist at [facility], Dr. Manning, and the patient will be transferred for further evaluation. He tells me that in looking through the patient's medical record that the patient already was being scheduled for a cardiac cathing procedure, based on a recent echocardiogram. The patient will be given Plavix 600 mg here and he will be started on nitroglycerin drip. We will not start him on heparin due to the fact that he is on Coumadin with a therapeutic INR. The patient was transferred by [facility] and condition upon discharge guarded but stable. The patient was pain free when he left our facility. JOSE/MODL /[id number] WILLIAM
== END 2018-03-19 14:10 ==
LOC: LB.ED 12:17
DX: I20.0 Unstable angina (principal); I25.2 Old myocardial infarction; I48.91 Unspecified atrial fibrillation; Z79.01 Long term (current) use of anticoagulants
CPT/HCPCS: 36415; 71045; 80053; 84484; 85025; 85610; 93005; 96374; 96376; 99283; 99285; A9270; J2270; J3490; J7030

== ENCOUNTER 2019-04-18 08:56 | Emergency (ER) | payer MEDICARE, BC ==
[2019-04-18] MEDS ORDERED: Metoprolol Tartrate 5 MG/5 ML SDV ONE (09:37)
[2019-04-18] MEDS ORDERED: LORazepam 2 MG/ML SDV ONE (09:37)
[2019-04-18] MEDS ORDERED: LORazepam 2 MG/ML SDV IVPUSH ONE (09:39)
[2019-04-18] MEDS ORDERED: Metoprolol Tartrate 5 MG/5 ML SDV IVPUSH ONE (09:42)
[2019-04-18] MEDS ORDERED: Metoclopramide 10 MG/2 ML SDV IVPUSH SCH (09:45)
[2019-04-18] MEDS ORDERED: Diltiazem 25 MG/5 ML SDV IVPUSH ONE (10:11)
--- NOTE | 2019-04-18 11:18 | CR ---
Date of Service: 04/18/19 Clinical Data: palpitations and dizziness PORTABLE AP CHEST: Comparison is made to a prior exam dated 03/19/18. The patient is status post median sternotomy The heart size is normal. The aorta is ectatic. 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 There is a linear density in the left lung base consistent with linear atelectasis or fibrosis. The lungs are otherwise clear. No pneumothorax. [id number] [facility]
[2019-04-18 11:21] VITALS: BP 113/79; PULSE 60
--- NOTE | 2019-04-18 15:14 | EDM.PDOC ---
ED HPI GENERAL MEDICAL PROBLEM - General Chief Complaint: Cardiovascular Problem Stated Complaint: palpitations and dizziness Time Seen by Provider: 04/18/19 09:00 Source of Information: Reports: Patient, Family History Limitations: Reports: No Limitations - History of Present Illness INITIAL COMMENTS - FREE TEXT/NARRATIVE: This is a 69yo M here for feeling of dizziness and abnormal heart rhythm. He states he has felt the abnormal rhythm for 3 days and the dizziness started today. He had a cardioversion a few months ago and has been in normal sinus. He is anticoagulated with coumadin and is therapeutic. H Onset: Sudden Duration: Day(s):, Constant, Getting Worse Severity: Moderate Improves with: Reports: None Worsens with: Reports: None Associated Symptoms: Reports: Shortness of Breath - Related Data Allergies Allergy/AdvReac Type Severity Reaction Status Date / Time celecoxib [From Celebrex] Allergy Hives Verified 01/20/17 09:23 hydrochlorothiazide Allergy Dizziness Verified 01/20/17 09:23 tamsulosin [From Flomax] Allergy Other Verified 03/19/18 12:40 Home Meds: Home Meds ALPRAZolam [Alprazolam] 0.5 mg PO BID PRN 04/09/17 [History] Atenolol 12.5 mg PO QPM 04/09/17 [History] Lisinopril 40 mg PO DAILY 04/09/17 [History] Sildenafil [Revatio] 10 mg PO DAILY 04/09/17 [History] Warfarin Sodium [Jantoven] 5 mg PO DAILY 04/09/17 [History] ALPRAZolam [Alprazolam] 0.5 mg PO DAILY 03/19/18 [History] Atenolol 37.5 mg PO DAILY 03/19/18 [History] Past Medical History HEENT History: Reports: Epistaxis, Impaired Vision, Other (See Below) Other HEENT History: barett's espohagus Cardiovascular History: Reports: Hypertension, [place], Other (See Below) Other Cardiovascular History: cardiac tumor Respiratory History: Reports: Other (See Below) Other Respiratory History: NOT DIAGNOSED BUT FEELS HE MIGHT HAVE A BRONCHITIS Gastrointestinal History: Reports: GERD Genitourinary History: Reports: BPH Musculoskeletal History: Reports: Other (See Below) Other Musculoskeletal History: POST POLIO LEFT LEG Neurological History: Reports: Other (See Below) Other Neuro History: POLIO LEFT LEG Psychiatric History: Reports: Anxiety Oncologic (Cancer) History: Reports: Other (See Below) 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, tumor removed 2006 - Infectious Disease History Infectious Disease History: Reports: Other (See Below) Other Infectious Disease History: UNSURE - Past Surgical History HEENT Surgical History: Reports: Other (See Below) Other HEENT Surgeries/Procedures: esophageal ablation Cardiovascular Surgical History: Reports: Other (See Below) Other Cardiovascular Surgeries/Procedures: cardiac tumor removal GI Surgical History: Reports: Other (See Below) Other GI Surgeries/Procedures: LINX procedure for GERD Male Surgical History: Reports: Circumcision Social & Family History - Family History Family Medical History: Noncontributory Cardiac: Reports: Heart Failure, [place] GI: Reports: GERD Musculoskeletal: Reports: Arthritis, Back pain, Chronic, Neck Pain, Chronic, Osteoarthritis Neurological: Reports: Parkinson's Psychiatric: Reports: Anxiety, Depression Endocrine/Metabolic: Reports: Hyperthyroidism Oncologic: Reports: Breast - Caffeine Use Caffeine Use: Reports: None Caffeine Use Comment: 8 WEEKS SINCE LAST CUP OF COFFEE ED ROS GENERAL - Review of Systems Review Of Systems: ROS reveals no pertinent complaints other than HPI. ED EXAM, GENERAL - Physical Exam Exam: See Below Exam Limited By: No Limitations General Appearance: Alert, WD/WN, No Apparent Distress Ears: Normal External Exam Nose: Normal Inspection Throat/Mouth: Normal Inspection Head: Atraumatic, Normocephalic Neck: Normal Inspection Respiratory/Chest: No Respiratory Distress, Lungs Clear Cardiovascular: Normal Peripheral Pulses, Tachycardia GI/Abdominal: Normal Bowel Sounds Back Exam: Normal Inspection Extremities: Normal Inspection Course - Vital Signs Last Recorded V/S: Last Vital Signs Temp 36.7 C 04/18/19 09:21 Pulse 60 04/18/19 11:21 Resp 16 04/18/19 09:21 BP 113/79 04/18/19 11:21 Pulse Ox 99 04/18/19 10:00 - Orders/Labs/Meds Orders: Active Orders 24 hr Category Date Time Status EKG Documentation Completion [RC] ASDIRECTED Care 04/18/19 09:18 Active EKG Documentation Completion [RC] ASDIRECTED Care 04/18/19 10:01 Active Labs: Laboratory Tests 04/18/19 04/18/19 04/18/19 Range/Units 09:10 09:10 09:10 WBC (4.0-11.0) K/uL RBC (4.50-6.50) M/uL Hgb (13.0-18.0) g/dL Hct (40.0-54.0) % MCV (76-96) fL MCH (27.0-32.0) pg MCHC (31.0-35.0) g/dL RDW (11.0-16.0) % Plt Count (150-400) K/uL MPV (6.0-10.0) fL Neut % (Auto) (45.0-70.0) % Lymph % (Auto) (20.0-40.0) % Bowman % (Auto) (3.0-10.0) % Eos % (Auto) (1.0-5.0) % Baso % (Auto) (0.0-0.5) % Neut # (Auto) (2.00-7.50) K/uL Lymph # (Auto) (1.50-4.00) K/uL Bowman # (Auto) (0.20-0.80) K/uL Eos # (Auto) (0.04-0.40) K/uL Baso # (Auto) (0.02-0.10) K/uL PT 28.2 H D (9.0-11.5) sec INR 3.1 D (1.0-3.5) Sodium 140 (136-145) mmol/L Potassium 3.9 (3.5-5.1) mmol/L Chloride 104 (98-107) mmol/L Carbon Dioxide 24.3 (21.0-32.0) mmol/L Anion Gap 15.6 H (5.0-15.0) mmol/L BUN 16 (8-26) mg/dL Creatinine 1.15 (0.70-1.30) mg/dL Est Cr Clr Drug Dosing 63.66 mL/min Estimated GFR (MDRD) > 60 (>60) MLS/MIN BUN/Creatinine Ratio 13.9 (6-25) Glucose 121 H (74-100) mg/dL Calcium 9.0 (8.5-10.1) mg/dL Total Bilirubin 0.7 (0.0-1.0) mg/dL AST 24 (15-37) U/L ALT 42 (12-78) U/L Alkaline Phosphatase 65 (46-116) U/L Troponin I < 0.017 (0.000-0.060) ng/mL B-Natriuretic Peptide 1239 H D (0-125) pg/mL Total Protein 7.4 (6.4-8.2) g/dL Albumin 3.9 (3.4-5.0) g/dL Globulin 3.5 (2.2-4.2) g/dL Albumin/Globulin Ratio 1.1 (0.8-2.0) 04/18/19 Range/Units 09:16 WBC 6.3 (4.0-11.0) K/uL RBC 4.87 (4.50-6.50) M/uL Hgb 15.0 (13.0-18.0) g/dL Hct 44.5 (40.0-54.0) % MCV 91 (76-96) fL MCH 30.8 (27.0-32.0) pg MCHC 33.7 (31.0-35.0) g/dL RDW 13.7 (11.0-16.0) % Plt Count 173 (150-400) K/uL MPV 11.4 H (6.0-10.0) fL Neut % (Auto) 56.0 (45.0-70.0) % Lymph % (Auto) 32.5 (20.0-40.0) % Bowman % (Auto) 9.7 (3.0-10.0) % Eos % (Auto) 1.6 (1.0-5.0) % Baso % (Auto) 0.2 (0.0-0.5) % Neut # (Auto) 3.54 (2.00-7.50) K/uL Lymph # (Auto) 2.05 (1.50-4.00) K/uL Bowman # (Auto) 0.61 (0.20-0.80) K/uL Eos # (Auto) 0.10 (0.04-0.40) K/uL Baso # (Auto) 0.01 L (0.02-0.10) K/uL PT (9.0-11.5) sec INR (1.0-3.5) Sodium (136-145) mmol/L Potassium (3.5-5.1) mmol/L Chloride (98-107) mmol/L Carbon Dioxide (21.0-32.0) mmol/L Anion Gap (5.0-15.0) mmol/L BUN (8-26) mg/dL Creatinine (0.70-1.30) mg/dL Est Cr Clr Drug Dosing mL/min Estimated GFR (MDRD) (>60) MLS/MIN BUN/Creatinine Ratio (6-25) Glucose (74-100) mg/dL Calcium (8.5-10.1) mg/dL Total Bilirubin (0.0-1.0) mg/dL AST (15-37) U/L ALT (12-78) U/L Alkaline Phosphatase (46-116) U/L Troponin I (0.000-0.060) ng/mL B-Natriuretic Peptide (0-125) pg/mL Total Protein (6.4-8.2) g/dL Albumin (3.4-5.0) g/dL Globulin (2.2-4.2) g/dL Albumin/Globulin Ratio (0.8-2.0) Meds: Medications Discontinued Medications Generic Name Dose Route Start Last Admin Trade Name Freq PRN Reason Stop Dose Admin Diltiazem HCl 25 mg 04/18/19 10:11 04/18/19 10:33 Diltiazem IVPUSH 04/18/19 10:12 25 mg ONETIME ONE Administration Lorazepam Confirm 04/18/19 09:37 04/18/19 09:40 Ativan Administered 04/18/19 09:38 Not Given Dose 2 mg .ROUTE .STK-MED ONE Lorazepam 1 mg 04/18/19 09:39 04/18/19 09:30 Ativan IVPUSH 04/18/19 09:40 1 mg ONETIME ONE Administration Metoprolol Tartrate Confirm 04/18/19 09:37 04/18/19 09:40 Lopressor Administered 04/18/19 09:38 Not Given Dose 5 mg .ROUTE .STK-MED ONE Metoprolol Tartrate 5 mg 04/18/19 09:42 04/18/19 09:45 Lopressor IVPUSH 04/18/19 09:43 5 mg ONETIME ONE Administration Departure - Departure Time of Disposition: 14:00 Disposition: Home, Self-Care 01 Condition: Good Clinical Impression: Tachycardia, Paroxysmal atrial flutter Instructions: Hypotension, [id number], Atrial Flutter, Form - Blood Pressure Record Sheet, Diltiazem tablets Referrals: PCP,None [Primary Care Provider] - Forms: ED Department Discharge Additional Instructions: Follow-up with your silver miner. You will start the cardizem today when you get home and you will take this daily. If you feel the heart flutters again, you need to return to the ER. You may feel dizzy spells with getting up to standing position and quick movements, be aware to move a little slower now. Do not be very active at all until the heart rate is more settled. - Problem List & Annotations (1) Heart palpitations SNOMED Code(s): 64536239 Code(s): R00.2 - PALPITATIONS Status: Acute Priority: Medium (2) Atrial fibrillation SNOMED Code(s): 31326061 Code(s): I48.91 - UNSPECIFIED ATRIAL FIBRILLATION Status: Acute Annotation/Comment:: 01/19/17 - Atrial fibrillation, converted to atrial flutter in the emergency room. The patient is now asymptomatic. (3) Paroxysmal atrial flutter SNOMED Code(s): 797021548 Code(s): I48.92 - UNSPECIFIED ATRIAL FLUTTER Status: Acute (4) Tachycardia SNOMED Code(s): 9058669 Code(s): R00.0 - TACHYCARDIA, UNSPECIFIED Status: Acute - Problem List Review Problem List Initiated/Reviewed/Updated: Yes - My Orders Last 24 Hours: My Active Orders 04/18/19 09:18 EKG Documentation Completion [RC] ASDIRECTED 04/18/19 10:01 EKG Documentation Completion [RC] ASDIRECTED - Assessment/Plan Last 24 Hours: My Active Orders 04/18/19 09:18 EKG Documentation Completion [RC] ASDIRECTED 04/18/19 10:01 EKG Documentation Completion [RC] ASDIRECTED Plan: Patient counseled on Cardizem and rate control of atrial flutter and recent paroxysmal atrial flutter. Patient to f/u with Cardiology and in clinic. Discussed addition of Cardizem 120mg CD as directed and close monitoring of BP and rate. F/u as directed. Continue anticoagulation.
== END 2019-04-18 11:43 | disposition home or self-care (01) ==
LOC: LB.ED 08:56
DX: I48.92 Unspecified atrial flutter (principal); I10 Essential (primary) hypertension; I25.2 Old myocardial infarction; K21.9 Gastro-esophageal reflux disease without esophagitis; F41.9 Anxiety disorder, unspecified; Z88.8 Allergy status to other drugs, medicaments and biological substances; Z79.899 Other long term (current) drug therapy; Z79.01 Long term (current) use of anticoagulants; R06.02 Shortness of breath
CPT/HCPCS: 36415; 71045; 80053; 83880; 84484; 85025; 85610; 93005; 96374; 96375; 99284; 99285; J2060; J3490; J7030

== ENCOUNTER → 2019-07-10 | Outpatient (CLI) | payer MEDICARE, BC | LOC: LB.COAG 09:35 | PROVIDERS: ATTEND Family Medicine | DX: I48.91 Unspecified atrial fibrillation (principal) | CPT/HCPCS: 85610 ==

== ENCOUNTER → 2019-08-19 | Outpatient (CLI) | payer MEDICARE, BC | LOC: LB.COAG 10:45 | PROVIDERS: ATTEND Family Medicine | DX: I48.91 Unspecified atrial fibrillation (principal) | CPT/HCPCS: 85610 ==

== ENCOUNTER 2019-08-25 07:58 | Emergency (ER) | payer MEDICARE, BC ==
[2019-08-25] MEDS: Diltiazem 25 MG/5 ML SDV IVPUSH ONE (09:06)
--- NOTE | 2019-08-25 09:14 | CR ---
Date of Service: 08/25/19 Clinical Data: arrhythmia AP CHEST: Comparison is made to a prior exam dated 04/18/19. The patient is status post median sternotomy. The heart size is normal. 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 There are mild atelectatic changes in both lung bases. The lungs are otherwise clear. No pneumothorax. No pleural effusions. No significant changes from the prior study. [id number] MTDD
[2019-08-25 10:21] VITALS: BP 106/71; PULSE 58
--- NOTE | 2019-08-25 22:35 | EDM.PDOC ---
ED HPI GENERAL MEDICAL PROBLEM - General Chief Complaint: Chest Pain Stated Complaint: HEART RACING Time Seen by Provider: 08/25/19 08:25 Source of Information: Reports: Patient History Limitations: Reports: No Limitations - History of Present Illness INITIAL COMMENTS - FREE TEXT/NARRATIVE: This is a 69yo M here for complaints of dizziness and his chest feeling funny. He has a history of Afib and flutter and has had these symptoms when the A flutter is not controlled. He denies any fever or chills. No chest pain or shortness of breath. Onset: Sudden Duration: Day(s): (1) Location: Reports: Chest, Generalized Severity: Mild Associated Symptoms: Reports: Other (dizziness) Left Middle Chest Pain Score (Numeric/FACES): 5 - Related Data Allergies Allergy/AdvReac Type Severity Reaction Status Date / Time celecoxib [From Celebrex] Allergy Hives Verified 01/20/17 09:23 hydrochlorothiazide Allergy Dizziness Verified 01/20/17 09:23 tamsulosin [From Flomax] Allergy Other Verified 03/19/18 12:40 bees Allergy Confusion Uncoded 08/25/19 08:32 Home Meds: Home Meds ALPRAZolam [Alprazolam] 0.5 mg PO BID PRN 04/09/17 [History] Lisinopril 40 mg PO DAILY 04/09/17 [History] Sildenafil [Revatio] 20 mg PO ASDIRECTED PRN 04/09/17 [History] Warfarin Sodium [Jantoven] 5 mg PO ASDIRECTED 04/09/17 [History] atenoloL [Atenolol] 12.5 mg PO QPM 04/09/17 [History] atenoloL [Atenolol] 37.5 mg PO DAILY 03/19/18 [History] Diltiazem HCl [Cartia Xt] 120 mg PO DAILY 08/25/19 [History] Pantoprazole 40 mg PO ACBREAKFAST 08/25/19 [History] Umeclidinium Brm/Vilanterol Tr [Anoro Ellipta 62.5-25 MCG] 1 puff INH DAILY [History] Past Medical History HEENT History: Reports: Epistaxis, Impaired Vision, Other (See Below) Other HEENT History: barett's espohagus Cardiovascular History: Reports: Hypertension, [place], Other (See Below) Other Cardiovascular History: cardiac tumor Respiratory History: Reports: Other (See Below) Other Respiratory History: NOT DIAGNOSED BUT FEELS HE MIGHT HAVE A BRONCHITIS Gastrointestinal History: Reports: GERD Genitourinary History: Reports: BPH Musculoskeletal History: Reports: Other (See Below) Other Musculoskeletal History: POST POLIO LEFT LEG Neurological History: Reports: Other (See Below) Other Neuro History: POLIO LEFT LEG Psychiatric History: Reports: Anxiety Oncologic (Cancer) History: Reports: Other (See Below) 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, tumor removed 2006 - Infectious Disease History Infectious Disease History: Reports: Other (See Below) Other Infectious Disease History: UNSURE - Past Surgical History HEENT Surgical History: Reports: Other (See Below) Other HEENT Surgeries/Procedures: esophageal ablation Cardiovascular Surgical History: Reports: Other (See Below) Other Cardiovascular Surgeries/Procedures: cardiac tumor removal GI Surgical History: Reports: Other (See Below) Other GI Surgeries/Procedures: LINX procedure for GERD Male Surgical History: Reports: Circumcision Social & Family History - Family History Family Medical History: Noncontributory Cardiac: Reports: Heart Failure, [place] GI: Reports: GERD Musculoskeletal: Reports: Arthritis, Back pain, Chronic, Neck Pain, Chronic, Osteoarthritis Neurological: Reports: Parkinson's Psychiatric: Reports: Anxiety, Depression Endocrine/Metabolic: Reports: Hyperthyroidism Oncologic: Reports: Breast - Caffeine Use Caffeine Use: Reports: None Caffeine Use Comment: 8 WEEKS SINCE LAST CUP OF COFFEE ED ROS GENERAL - Review of Systems Review Of Systems: Comprehensive ROS is negative, except as noted in HPI. ED EXAM, GENERAL - Physical Exam Exam: See Below Exam Limited By: No Limitations General Appearance: Alert, WD/WN, No Apparent Distress Eye Exam: Bilateral Eye: EOMI, PERRL Ears: Normal External Exam Nose: Normal Inspection Throat/Mouth: Normal Inspection Head: Atraumatic, Normocephalic Neck: Normal Inspection Respiratory/Chest: No Respiratory Distress, Lungs Clear, Normal Breath Sounds Cardiovascular: Normal Peripheral Pulses, Irregularly Irregular GI/Abdominal: Normal Bowel Sounds Course - Vital Signs Last Recorded V/S: Last Vital Signs Temp 36.7 C 08/25/19 09:30 Pulse 58 L 08/25/19 10:20 Resp 14 08/25/19 10:20 BP 106/71 08/25/19 10:20 Pulse Ox 92 L 08/25/19 10:20 - Orders/Labs/Meds Orders: Active Orders 24 hr Category Date Time Status EKG Documentation Completion [RC] ASDIRECTED Care 08/25/19 09:39 Active Labs: Laboratory Tests 08/25/19 08/25/19 Range/Units 08:25 08:25 WBC 6.6 (4.0-11.0) K/uL RBC 4.83 (4.50-6.50) M/uL Hgb 14.7 (13.0-18.0) g/dL Hct 44.7 (40.0-54.0) % MCV 93 (76-96) fL MCH 30.4 (27.0-32.0) pg MCHC 32.9 (31.0-35.0) g/dL RDW 14.0 (11.0-16.0) % Plt Count 184 (150-400) K/uL MPV 11.1 H (6.0-10.0) fL Neut % (Auto) 51.2 (45.0-70.0) % Lymph % (Auto) 34.2 (20.0-40.0) % Twiggs % (Auto) 11.8 H (3.0-10.0) % Eos % (Auto) 2.3 (1.0-5.0) % Baso % (Auto) 0.5 (0.0-0.5) % Neut # (Auto) 3.40 (2.00-7.50) K/uL Lymph # (Auto) 2.27 (1.50-4.00) K/uL Twiggs # (Auto) 0.78 (0.20-0.80) K/uL Eos # (Auto) 0.15 (0.04-0.40) K/uL Baso # (Auto) 0.03 (0.02-0.10) K/uL Sodium 141 (136-145) mmol/L Potassium 4.0 (3.5-5.1) mmol/L Chloride 107 (98-107) mmol/L Carbon Dioxide 25.9 (21.0-32.0) mmol/L Anion Gap 12.1 (5.0-15.0) mmol/L BUN 20 D (8-26) mg/dL Creatinine 1.12 (0.70-1.30) mg/dL Est Cr Clr Drug Dosing 67.36 mL/min Estimated GFR (MDRD) > 60 (>60) MLS/MIN BUN/Creatinine Ratio 17.9 (6-25) Glucose 110 H (74-100) mg/dL Calcium 8.9 (8.5-10.1) mg/dL Troponin I < 0.017 (0.000-0.060) ng/mL B-Natriuretic Peptide 1031 H (0-125) pg/mL Meds: Medications Discontinued Medications Generic Name Dose Route Start Last Admin Trade Name Freq PRN Reason Stop Dose Admin Diltiazem HCl 25 mg 08/25/19 09:06 08/25/19 09:06 Diltiazem IVPUSH 08/25/19 09:07 25 mg ONETIME ONE Administration Departure - Departure Time of Disposition: 09:40 Disposition: Home, Self-Care 01 Condition: Good Clinical Impression: Atrial flutter by electrocardiogram Referrals: PCP,None [Primary Care Provider] - Forms: ED Department Discharge Additional Instructions: Dr Sanabria has suggested you double your cardiezem/diltiezem dose from 120mg to 240mg daily. You have also been encouraged to contact your design sales consultant to investigate your increasing signs and symptoms further. There will be a prescription faxed to the pharmacy - please remember to pick it up. Sepsis Event Note - Evaluation Sepsis Screening Result: No Definite Risk - Problem List & Annotations (1) Atrial flutter by electrocardiogram SNOMED Code(s): 748003849 Code(s): I48.92 - UNSPECIFIED ATRIAL FLUTTER Status: Acute Priority: High - Problem List Review Problem List Initiated/Reviewed/Updated: Yes - My Orders Last 24 Hours: My Active Orders 08/25/19 09:39 EKG Documentation Completion [RC] ASDIRECTED - Assessment/Plan Last 24 Hours: My Active Orders 08/25/19 09:39 EKG Documentation Completion [RC] ASDIRECTED Plan: Counseled on management of rate and medications. Patient to be placed on 240mg diltiazem. Discussed f/u with Cardiology and rtc as needed if any further symptoms or concerns.
== END 2019-08-25 09:35 | disposition home or self-care (01) ==
LOC: LB.ED 07:58
DX: I48.92 Unspecified atrial flutter (principal); I10 Essential (primary) hypertension; I25.2 Old myocardial infarction; K21.9 Gastro-esophageal reflux disease without esophagitis; F41.9 Anxiety disorder, unspecified; Z88.8 Allergy status to other drugs, medicaments and biological substances; Z91.030 Bee allergy status; Z79.899 Other long term (current) drug therapy; Z79.01 Long term (current) use of anticoagulants
CPT/HCPCS: 36415; 71045; 80048; 83880; 84484; 85025; 93005; 96374; 99284; 99285; J3490

== ENCOUNTER 2019-11-24 17:50 | Emergency (ER) | payer MEDICARE, BC ==
[2019-11-24] MEDS ORDERED: LORazepam 1 MG Tab PO ONE (18:51)
[2019-11-24] MEDS ORDERED: LORazepam 1 MG Tab ONE (18:56)
[2019-11-24 19:08] VITALS: BP 157/91; PULSE 81
--- NOTE | 2019-11-24 21:11 | EDM.PDOC ---
ED HPI GENERAL MEDICAL PROBLEM - General Chief Complaint: General Stated Complaint: chest pain Time Seen by Provider: 11/24/19 18:00 - History of Present Illness INITIAL COMMENTS - FREE TEXT/NARRATIVE: Jan presents the emergency room tonight due to chest discomfort. He really states that this is hardly anything close to a pain. He mainly came in because it is somewhat reminiscent of what he had had when he had his NC in 2006. 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 He denies any shortness of breath, nausea, diaphoresis, or exertional issues. He notes that the discomfort came on in his lateral left upper chest wall when he was laying down in a contorted position trying to install something apparently beneath a countertop. He was holding the screw gun in his right hand. He got up and went about his usual activities. After a while, he noticed the tingling sensation stayed. He is noted to have chewed 324 mg of aspirin and, warned his Carina, who brought him into the ER. He admits to ongoing issues with anxiety. He denies any GERD. He has had no postprandial symptoms. He has had no pleuritic issues. He denies any trauma. He has not had any recent cough, headache, fever, and otherwise felt significantly fine. Of note, he could feel that he went into A. fib a couple of days ago. He states that sometimes he gets discomfort in his chest when this happens. He states that he has been monitored with serial troponins for this in the past. His anticipation tonight , is that if his troponins were negative, that he could go home. It seems that he is mostly seeking reassurance. Initially, he is not interested in any lorazepam, but goes on to state that he takes this at home, and was receptive to my RN providing him with such while we waited for his second troponin. He is anticoagulated for his paroxysmal atrial fibrillation. Treatments TUG HAND: Reports: Aspirin - Related Data Allergies Allergy/AdvReac Type Severity Reaction Status Date / Time celecoxib [From Celebrex] Allergy Hives Verified 11/24/19 18:19 hydrochlorothiazide Allergy Dizziness Verified 11/24/19 18:19 tamsulosin [From Flomax] Allergy Other Verified 11/24/19 18:19 bees Allergy Confusion Uncoded 11/24/19 18:19 Home Meds: Home Meds ALPRAZolam [Alprazolam] 0.5 mg PO BID PRN 04/09/17 [History] Lisinopril 40 mg PO DAILY 04/09/17 [History] Sildenafil [Revatio] 20 mg PO ASDIRECTED PRN 04/09/17 [History] Warfarin Sodium [Jantoven] 5 mg PO ASDIRECTED 04/09/17 [History] atenoloL [Atenolol] 12.5 mg PO QPM 04/09/17 [History] atenoloL [Atenolol] 37.5 mg PO DAILY 03/19/18 [History] Diltiazem HCl [Cartia Xt] 240 mg PO DAILY 08/25/19 [History] Pantoprazole 40 mg PO ACBREAKFAST 08/25/19 [History] Umeclidinium Brm/Vilanterol Tr [Anoro Ellipta 62.5-25 MCG] 1 puff INH DAILY [History] Past Medical History HEENT History: Reports: Epistaxis, Impaired Vision, Other (See Below) Other HEENT History: barett's espohagus Cardiovascular History: Reports: Hypertension, NC, Other (See Below) Other Cardiovascular History: cardiac tumor Respiratory History: Reports: Other (See Below) Other Respiratory History: NOT DIAGNOSED BUT FEELS HE MIGHT HAVE A BRONCHITIS Gastrointestinal History: Reports: GERD Genitourinary History: Reports: BPH Musculoskeletal History: Reports: Other (See Below) Other Musculoskeletal History: POST POLIO LEFT LEG Neurological History: Reports: Other (See Below) Other Neuro History: POLIO LEFT LEG Psychiatric History: Reports: Anxiety Oncologic (Cancer) History: Reports: Other (See Below) 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, tumor removed 2006 - Infectious Disease History Infectious Disease History: Reports: Other (See Below) Other Infectious Disease History: UNSURE - Past Surgical History HEENT Surgical History: Reports: Other (See Below) Other HEENT Surgeries/Procedures: esophageal ablation Cardiovascular Surgical History: Reports: Other (See Below) Other Cardiovascular Surgeries/Procedures: cardiac tumor removal GI Surgical History: Reports: Other (See Below) Other GI Surgeries/Procedures: LINX procedure for GERD Male Surgical History: Reports: Circumcision Social & Family History - Family History Family Medical History: Noncontributory Cardiac: Reports: Heart Failure, NC GI: Reports: GERD Musculoskeletal: Reports: Arthritis, Back pain, Chronic, Neck Pain, Chronic, Osteoarthritis Neurological: Reports: Parkinson's Psychiatric: Reports: Anxiety, Depression Endocrine/Metabolic: Reports: Hyperthyroidism Oncologic: Reports: Breast - Tobacco Use Smoking Status *Q: Former Smoker Used Tobacco, but Quit: Yes Month/Year Tobacco Last Used: 1989 - Caffeine Use Caffeine Use: Reports: Coffee Caffeine Use Comment: 8 WEEKS SINCE LAST CUP OF COFFEE - Recreational Drug Use Recreational Drug Use: No ED ROS GENERAL - Review of Systems Review Of Systems: Comprehensive ROS is negative, except as noted in HPI. ED EXAM, GENERAL - Physical Exam Exam: See Below Exam Limited By: No Limitations General Appearance: Alert, WD/WN, No Apparent Distress Eye Exam: Bilateral Eye: EOMI Ears: Normal External Exam, Normal Canal, Hearing Grossly Normal Nose: Normal Inspection Throat/Mouth: Normal Inspection, Normal Lips Neck: Normal Inspection, Supple Respiratory/Chest: No Respiratory Distress, Lungs Clear, Normal Breath Sounds, Chest Non-Tender Cardiovascular: Regular Rate, Rhythm, No Murmur GI/Abdominal: Normal Bowel Sounds, Soft, Non-Tender Back Exam: Normal Inspection, Full Range of Motion. No: CVA Tenderness (R), CVA Tenderness (L), Muscle Spasm, Vertebral Tenderness Extremities: Normal Inspection, Normal Range of Motion, Non-Tender, No Pedal Edema, Normal Capillary Refill, Other (Changes consistent with polio on the right lower extremity) Neurological: Alert, Oriented, CN II-XII Intact, Normal Cognition, Normal Gait, No Motor/Sensory Deficits Course - Vital Signs Text/Narrative:: Twelve-lead EKG was obtained which reveals atrial flutter and no significant ST segment derangements. This was repeated and essentially unchanged. His initial troponin came back negative. We discussed the differential, and I explained that it bothers me somewhat that we do not really have a good etiology of his pain. I did explain that he certainly was contorted in awkward positions in regard to the pressure on his chest wall while he was laying under the cabinet, and maybe this could be related to some sort of musculoskeletal cause. I am not sure how much of the paroxysmal atrial fibrillation could be an issue. I reexamined his chest wall and his left shoulder carefully and he certainly does not have any bony tenderness or impingement sign. 1 where the other, he feels reassured, and wishes to go home. I think this is reasonable. He actually is following up in [place] tomorrow for a sleep study. He follows with cardiology there and had a normal angiogram within the last year. 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 Last Recorded V/S: Last Vital Signs Temp 96.8 F L 11/24/19 17:59 Pulse 81 11/24/19 19:00 Resp 12 11/24/19 19:00 BP 157/91 H 11/24/19 19:00 Pulse Ox 97 11/24/19 19:00 - Orders/Labs/Meds Orders: Active Orders 24 hr Category Date Time Status EKG Documentation Completion [RC] ASDIRECTED Care 11/24/19 18:01 Active EKG Documentation Completion [RC] ASDIRECTED Care 11/24/19 20:47 Active Chest 2V [CR] Stat Exams 11/24/19 17:59 Taken EKG 12 Lead [EK] Routine Ther 11/24/19 20:40 Ordered Labs: Laboratory Tests 11/24/19 11/24/19 11/24/19 Range/Units 18:05 18:05 18:05 WBC 7.5 (4.0-11.0) K/uL RBC 4.62 (4.50-6.50) M/uL Hgb 14.0 (13.0-18.0) g/dL Hct 42.1 (40.0-54.0) % MCV 91 (76-96) fL MCH 30.3 (27.0-32.0) pg MCHC 33.3 (31.0-35.0) g/dL RDW 13.6 (11.0-16.0) % Plt Count 170 (150-400) K/uL MPV 11.2 H (6.0-10.0) fL Neut % (Auto) 54.6 (45.0-70.0) % Lymph % (Auto) 33.6 (20.0-40.0) % [place] % (Auto) 10.0 (3.0-10.0) % Eos % (Auto) 1.3 (1.0-5.0) % Baso % (Auto) 0.5 (0.0-0.5) % Neut # (Auto) 4.10 (2.00-7.50) K/uL Lymph # (Auto) 2.53 (1.50-4.00) K/uL [place] # (Auto) 0.75 (0.20-0.80) K/uL Eos # (Auto) 0.10 (0.04-0.40) K/uL Baso # (Auto) 0.04 (0.02-0.10) K/uL PT 25.6 H (9.0-11.5) sec INR 2.8 (1.0-3.5) Sodium 141 (136-145) mmol/L Potassium 4.2 (3.5-5.1) mmol/L Chloride 105 (98-107) mmol/L Carbon Dioxide 26.4 (21.0-32.0) mmol/L Anion Gap 13.8 (5.0-15.0) mmol/L BUN 17 (8-26) mg/dL Creatinine 1.20 (0.70-1.30) mg/dL Est Cr Clr Drug Dosing 62.87 mL/min Estimated GFR (MDRD) 60 (>60) MLS/MIN BUN/Creatinine Ratio 14.2 (6-25) Glucose 100 (74-100) mg/dL Calcium 8.7 (8.5-10.1) mg/dL Magnesium (1.8-2.4) mg/dL Total Bilirubin 0.4 D (0.0-1.0) mg/dL AST 24 (15-37) U/L ALT 39 (12-78) U/L Alkaline Phosphatase 64 (46-116) U/L Troponin I < 0.017 (0.000-0.060) ng/mL Total Protein 7.0 (6.4-8.2) g/dL Albumin 3.8 (3.4-5.0) g/dL Globulin 3.2 (2.2-4.2) g/dL Albumin/Globulin Ratio 1.2 (0.8-2.0) Amylase 36 (25-115) U/L TSH, Ultra Sensitive (0.358-3.740) uIU/mL 11/24/19 11/24/19 Range/Units 18:11 20:00 WBC (4.0-11.0) K/uL RBC (4.50-6.50) M/uL Hgb (13.0-18.0) g/dL Hct (40.0-54.0) % MCV (76-96) fL MCH (27.0-32.0) pg MCHC (31.0-35.0) g/dL RDW (11.0-16.0) % Plt Count (150-400) K/uL MPV (6.0-10.0) fL Neut % (Auto) (45.0-70.0) % Lymph % (Auto) (20.0-40.0) % [place] % (Auto) (3.0-10.0) % Eos % (Auto) (1.0-5.0) % Baso % (Auto) (0.0-0.5) % Neut # (Auto) (2.00-7.50) K/uL Lymph # (Auto) (1.50-4.00) K/uL [place] # (Auto) (0.20-0.80) K/uL Eos # (Auto) (0.04-0.40) K/uL Baso # (Auto) (0.02-0.10) K/uL PT (9.0-11.5) sec INR (1.0-3.5) Sodium (136-145) mmol/L Potassium (3.5-5.1) mmol/L Chloride (98-107) mmol/L Carbon Dioxide (21.0-32.0) mmol/L Anion Gap (5.0-15.0) mmol/L BUN (8-26) mg/dL Creatinine (0.70-1.30) mg/dL Est Cr Clr Drug Dosing mL/min Estimated GFR (MDRD) (>60) MLS/MIN BUN/Creatinine Ratio (6-25) Glucose (74-100) mg/dL Calcium (8.5-10.1) mg/dL Magnesium 2.1 (1.8-2.4) mg/dL Total Bilirubin (0.0-1.0) mg/dL AST (15-37) U/L ALT (12-78) U/L Alkaline Phosphatase (46-116) U/L Troponin I < 0.017 (0.000-0.060) ng/mL Total Protein (6.4-8.2) g/dL Albumin (3.4-5.0) g/dL Globulin (2.2-4.2) g/dL Albumin/Globulin Ratio (0.8-2.0) Amylase (25-115) U/L TSH, Ultra Sensitive 1.582 D (0.358-3.740) uIU/mL Meds: Medications Discontinued Medications Generic Name Dose Route Start Last Admin Trade Name Pricilla PRN Reason Stop Dose Admin Lorazepam Confirm 11/24/19 18:56 11/24/19 18:59 Ativan Administered 11/24/19 18:57 Not Given Dose 1 mg .ROUTE .STK-MED ONE Lorazepam 1 mg 11/24/19 18:51 11/24/19 18:58 Ativan PO 11/24/19 18:52 1 mg ONETIME ONE Administration Departure - Departure Time of Disposition: 21:00 Disposition: Home, Self-Care 01 Clinical Impression: Chest discomfort - Discharge Information Instructions: Nonspecific Chest Pain, Adult, [id number] Referrals: PCP,None [Primary Care Provider] - Forms: ED Department Discharge Additional Instructions: Please rest today, and return to ER if your symptoms worsen or return. Also, please follow up with your Automatic Tire Tester in [place] as needed. Sepsis Event Note - Evaluation Sepsis Screening Result: No Definite Risk - Focused Exam Vital Signs: Vital Signs Temp Pulse Resp BP Pulse Ox 11/24/19 19:00 81 12 157/91 H 97 11/24/19 18:14 94 158/102 H 11/24/19 17:59 96.8 F L 88 18 147/103 H 97 11/24/19 17:55 96.8 F L 88 18 147/103 H 97 Date Exam was Performed: 11/24/19 Time Exam was Performed: 20:58 - My Orders Last 24 Hours: My Active Orders 11/24/19 17:59 Chest 2V [CR] Stat 11/24/19 18:01 EKG Documentation Completion [RC] ASDIRECTED 11/24/19 20:40 EKG 12 Lead [EK] Routine 11/24/19 20:47 EKG Documentation Completion [RC] ASDIRECTED - Assessment/Plan Last 24 Hours: My Active Orders 11/24/19 17:59 Chest 2V [CR] Stat 11/24/19 18:01 EKG Documentation Completion [RC] ASDIRECTED 11/24/19 20:40 EKG 12 Lead [EK] Routine 11/24/19 20:47 EKG Documentation Completion [RC] ASDIRECTED
--- NOTE | 2019-11-25 05:09 | CR ---
DATE OF SERVICE: 11/24/19 CLINICAL DATA: Chest pressure. PA AND LATERAL CHEST: Comparison made to a prior exam dated 08/25/19. The patient is status post median sternotomy. The heart size is normal. The aorta is ectatic. 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 The lungs are otherwise clear. No pneumothorax. No pleural effusions. No acute abnormalities. [id number] [facility]
== END 2019-11-24 20:46 | disposition home or self-care (01) ==
LOC: LB.ED 17:50
DX: R07.89 Other chest pain (principal); I10 Essential (primary) hypertension; I25.2 Old myocardial infarction; K21.9 Gastro-esophageal reflux disease without esophagitis; F41.9 Anxiety disorder, unspecified; Z87.891 Personal history of nicotine dependence; Z88.8 Allergy status to other drugs, medicaments and biological substances; Z91.030 Bee allergy status; Z79.899 Other long term (current) drug therapy
CPT/HCPCS: 36415; 71046; 80053; 82150; 83735; 84443; 84484; 85025; 85610; 93005; 99284; 99285; A9270

== ENCOUNTER 2020-05-16 10:33 | Emergency (ER) | payer MEDICARE, BC ==
[2020-05-16] MEDS: Nitroglycerin 0.4 MG Tab.SL SL PRN ×2 (10:38→11:27)
--- NOTE | 2020-05-16 10:43 | EDM.PDOC ---
ED HPI GENERAL MEDICAL PROBLEM - General Chief Complaint: Cardiovascular Problem Stated Complaint: CHEST PAIN Time Seen by Provider: 05/16/20 10:34 Source of Information: Reports: Patient History Limitations: Reports: No Limitations - History of Present Illness INITIAL COMMENTS - FREE TEXT/NARRATIVE: patient woke at 0300 with left sided CP, described as a squeezing pressure. W ent for a walk this AM, felt slight SOB. 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 Recently had a medication change, but unsure of what the new antiarrhythmic med is. Patient takes jantoven daily. Middle Pain Score (Numeric/FACES): 6 Chest Pain Score (Numeric/FACES): 6 - Related Data Allergies Allergy/AdvReac Type Severity Reaction Status Date / Time celecoxib [From Celebrex] Allergy Hives Verified 05/16/20 10:34 hydrochlorothiazide Allergy Dizziness Verified 05/16/20 10:34 tamsulosin [From Flomax] Allergy Other Verified 05/16/20 10:34 bees Allergy Confusion Uncoded 05/16/20 10:34 Home Meds: Home Meds ALPRAZolam [Alprazolam] 0.5 mg PO BID PRN 04/09/17 [History] Lisinopril 40 mg PO DAILY 04/09/17 [History] Sildenafil [Revatio] 20 mg PO ASDIRECTED PRN 04/09/17 [History] Warfarin Sodium [Jantoven] 5 mg PO ASDIRECTED 04/09/17 [History] atenoloL [Atenolol] 12.5 mg PO QPM 04/09/17 [History] atenoloL [Atenolol] 12.5 mg PO BID 03/19/18 [History] Umeclidinium Brm/Vilanterol Tr [Anoro Ellipta 62.5-25 MCG] 1 puff INH DAILY 08/25/19 [History] dilTIAZem HCL [Cartia Xt] 240 mg PO DAILY 08/25/19 [History] Flecainide [Tambocor] 50 mg PO BID 05/16/20 [History] dilTIAZem HCL [Cartia Xt] 120 mg PO DAILY 05/16/20 [History] Past Medical History HEENT History: Reports: Epistaxis, Impaired Vision, Other (See Below) Other HEENT History: barett's espohagus Cardiovascular History: Reports: Hypertension, ND, Other (See Below) Other Cardiovascular History: cardiac tumor Respiratory History: Reports: Other (See Below) Other Respiratory History: NOT DIAGNOSED BUT FEELS HE MIGHT HAVE A BRONCHITIS Gastrointestinal History: Reports: GERD Genitourinary History: Reports: BPH Musculoskeletal History: Reports: Other (See Below) Other Musculoskeletal History: POST POLIO LEFT LEG Neurological History: Reports: Other (See Below) Other Neuro History: POLIO LEFT LEG Psychiatric History: Reports: Anxiety Oncologic (Cancer) History: Reports: Other (See Below) 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, tumor removed 2006 - Infectious Disease History Infectious Disease History: Reports: Other (See Below) Other Infectious Disease History: UNSURE - Past Surgical History HEENT Surgical History: Reports: Other (See Below) Other HEENT Surgeries/Procedures: esophageal ablation Cardiovascular Surgical History: Reports: Other (See Below) Other Cardiovascular Surgeries/Procedures: cardiac tumor removal GI Surgical History: Reports: Other (See Below) Other GI Surgeries/Procedures: LINX procedure for GERD Male Surgical History: Reports: Circumcision Social & Family History - Family History Family Medical History: Noncontributory Cardiac: Reports: Heart Failure, ND GI: Reports: GERD Musculoskeletal: Reports: Arthritis, Back pain, Chronic, Neck Pain, Chronic, Osteoarthritis Neurological: Reports: Parkinson's Psychiatric: Reports: Anxiety, Depression Endocrine/Metabolic: Reports: Hyperthyroidism Oncologic: Reports: Breast - Caffeine Use Caffeine Use: Reports: Coffee Caffeine Use Comment: 8 WEEKS SINCE LAST CUP OF COFFEE ED ROS GENERAL - Review of Systems Review Of Systems: See Below Constitutional: Reports: No Symptoms HEENT: Reports: No Symptoms Respiratory: Reports: No Symptoms Cardiovascular: Reports: Chest Pain, Dyspnea on Exertion Endocrine: Reports: No Symptoms GI/Abdominal: Reports: No Symptoms Musculoskeletal: Reports: No Symptoms Skin: Reports: No Symptoms Neurological: Reports: No Symptoms Psychiatric: Reports: No Symptoms ED EXAM, GENERAL - Physical Exam Exam: See Below Exam Limited By: No Limitations General Appearance: Alert, No Apparent Distress Ears: Normal External Exam Nose: Normal Inspection Throat/Mouth: Normal Inspection Head: Atraumatic Neck: Non-Tender, Full Range of Motion Respiratory/Chest: No Respiratory Distress, Lungs Clear, Normal Breath Sounds, No Accessory Muscle Use Cardiovascular: Normal Peripheral Pulses, Regular Rate, Rhythm, No Edema, No JVD Peripheral Pulses: 3+: Radial (L), Radial (R), Dorsalis Pedis (L), Dorsalis Pedis (R) GI/Abdominal: Normal Bowel Sounds Rectal (Males) Exam: Deferred Back Exam: Normal Inspection Extremities: Normal Inspection, Normal Range of Motion Neurological: Alert, Oriented Psychiatric: Normal Affect Skin Exam: Warm, Dry Lymphatic: No Adenopathy Course - Vital Signs Last Recorded V/S: Last Vital Signs Temp 97 F 05/16/20 10:34 Pulse 110 H 05/16/20 11:00 Resp 16 05/16/20 11:20 BP 112/71 05/16/20 11:27 Pulse Ox 95 05/16/20 11:20 - Orders/Labs/Meds Orders: Active Orders 24 hr Category Date Time Status EKG Documentation Completion [RC] ASDIRECTED Care 05/16/20 11:16 Active Chest 1V Frontal [CR] Stat Exams 05/16/20 10:44 Taken Heparin Sodium/D5W [Heparin 25,000 Units in D5W 500 ML] Med 05/16/20 11:45 Ordered 25,000 units in 500 ml IV TITRATE Nitroglycerin [Nitrostat] Med 05/16/20 11:26 Active 0.4 mg SL Q5M PRN Sodium Chloride 0.9% [Normal Saline] 1,000 ml Med 05/16/20 11:30 Active IV ASDIRECTED Medication Orders Sodium Chloride (Normal Saline) 1,000 mls @ 50 mls/hr IV ASDIRECTED LISA Last Admin: 05/16/20 10:44 Dose: 50 mls/hr Documented by: TABBY Heparin Sodium/Dextrose (Heparin 25,000 Units In D5w 500 Ml) 25,000 units in 500 mls @ 20 mls/hr IV TITRATE LISA; Protocol Last Admin: 05/16/20 11:49 Dose: 1,000 units/hr, 20 mls/hr Documented by: TABBY Cosigned by: YONG Nitroglycerin (Nitrostat) 0.4 mg SL Q5M PRN PRN Reason: Chest Pain Last Admin: 05/16/20 11:27 Dose: 0.4 mg Documented by: Admin: 05/16/20 10:38 Dose: 0.4 mg Documented by: TABBY Labs: Laboratory Tests 05/16/20 05/16/2005/16/20 Range/Units 10:40 10:45 11:01 WBC 5.1 D (4.0-11.0) K/uL RBC 4.57 (4.50-6.50) M/uL Hgb 14.2 (13.0-18.0) g/dL Hct 42.0 (40.0-54.0) % MCV 92 (76-96) fL MCH 31.1 (27.0-32.0) pg MCHC 33.8 (31.0-35.0) g/dL RDW 13.4 (11.0-16.0) % Plt Count 179 (150-400) K/uL MPV 11.4 H (6.0-10.0) fL Neut % (Auto) 55.2 (45.0-70.0) % Lymph % (Auto) 34.1 (20.0-40.0) % [place] % (Auto) 9.1 (3.0-10.0) % Eos % (Auto) 1.2 (1.0-5.0) % Baso % (Auto) 0.4 (0.0-0.5) % Neut # (Auto) 2.80 (2.00-7.50) K/uL Lymph # (Auto) 1.73 (1.50-4.00) K/uL [place] # (Auto) 0.46 (0.20-0.80) K/uL Eos # (Auto) 0.06 (0.04-0.40) K/uL Baso # (Auto) 0.02 (0.02-0.10) K/uL PT 18.5 H D (9.0-11.5) sec INR 1.8 D (1.0-3.5) APTT 28.8 (24.4-33.2) SECONDS D-Dimer, Quantitative (0-400) ng/mL Sodium 138 (136-145) mmol/L Potassium 3.9 (3.5-5.1) mmol/L Chloride 104 (98-107) mmol/L Carbon Dioxide 21.6 (21.0-32.0) mmol/L Anion Gap 16.3 H (5.0-15.0) mmol/L BUN 15 (8-26) mg/dL Creatinine 1.23 (0.70-1.30) mg/dL Est Cr Clr Drug Dosing 60.46 mL/min Estimated GFR (MDRD) 58 L (>60) MLS/MIN BUN/Creatinine Ratio 12.2 (6-25) Glucose 119 H (74-100) mg/dL Calcium 8.6 (8.5-10.1) mg/dL Total Bilirubin 0.6 D (0.0-1.0) mg/dL AST 23 (15-37) U/L ALT 32 (12-78) U/L Alkaline Phosphatase 54 (46-116) U/L Troponin I < 0.017 (0.000-0.060) ng/mL Total Protein 6.9 (6.4-8.2) g/dL Albumin 3.7 (3.4-5.0) g/dL Globulin 3.2 (2.2-4.2) g/dL Albumin/Globulin Ratio 1.2 (0.8-2.0) COVID-19 (ANJEL) 05/16/20 05/16/20 Range/Units 11:07 11:10 WBC (4.0-11.0) K/uL RBC (4.50-6.50) M/uL Hgb (13.0-18.0) g/dL Hct (40.0-54.0) % MCV (76-96) fL MCH (27.0-32.0) pg MCHC (31.0-35.0) g/dL RDW (11.0-16.0) % Plt Count (150-400) K/uL MPV (6.0-10.0) fL Neut % (Auto) (45.0-70.0) % Lymph % (Auto) (20.0-40.0) % [place] % (Auto) (3.0-10.0) % Eos % (Auto) (1.0-5.0) % Baso % (Auto) (0.0-0.5) % Neut # (Auto) (2.00-7.50) K/uL Lymph # (Auto) (1.50-4.00) K/uL [place] # (Auto) (0.20-0.80) K/uL Eos # (Auto) (0.04-0.40) K/uL Baso # (Auto) (0.02-0.10) K/uL PT (9.0-11.5) sec INR (1.0-3.5) APTT (24.4-33.2) SECONDS D-Dimer, Quantitative < 100 (0-400) ng/mL Sodium (136-145) mmol/L Potassium (3.5-5.1) mmol/L Chloride (98-107) mmol/L Carbon Dioxide (21.0-32.0) mmol/L Anion Gap (5.0-15.0) mmol/L BUN (8-26) mg/dL Creatinine (0.70-1.30) mg/dL Est Cr Clr Drug Dosing mL/min Estimated GFR (MDRD) (>60) MLS/MIN BUN/Creatinine Ratio (6-25) Glucose (74-100) mg/dL Calcium (8.5-10.1) mg/dL Total Bilirubin (0.0-1.0) mg/dL AST (15-37) U/L ALT (12-78) U/L Alkaline Phosphatase (46-116) U/L Troponin I (0.000-0.060) ng/mL Total Protein (6.4-8.2) g/dL Albumin (3.4-5.0) g/dL Globulin (2.2-4.2) g/dL Albumin/Globulin Ratio (0.8-2.0) COVID-19 (ANJEL) Negative Meds: Medications Generic Name Dose Route Start Last Admin Trade Name Freq PRN Reason Stop Dose Admin Sodium Chloride 1,000 mls @ 50 mls/hr 05/16/20 11:30 05/16/20 10:44 Normal Saline IV 50 mls/hr ASDIRECTED LISA Administration Heparin Sodium/Dextrose 25,000 units in 500 mls @ 20 mls/hr 05/16/20 11:45 05/16/20 11:49 Heparin 25,000 Units In D5w 500 Ml IV 1,000 units/hr TITRATE LISA 20 mls/hr Administration Protocol 1,000 UNITS/HR Nitroglycerin 0.4 mg 05/16/20 11:26 05/16/20 11:27 Nitrostat SL 0.4 mg Q5M PRN Administration Chest Pain Discontinued Medications Generic Name Dose Route Start Last Admin Trade Name Freq PRN Reason Stop Dose Admin Heparin Sodium (Porcine) 4,000 units 05/16/20 11:43 05/16/20 11:48 Heparin Sodium IVPUSH 05/16/20 11:44 4,000 units .BOLUS ONE Administration Departure - Departure Time of Disposition: 12:00 Disposition: DC/Tfer to [facility] 02 Preliminary Cause of *Q: Other_Special Instruction Reason for Transfer *Q: Other (cardiology, possible test lab technician) Clinical Impression: Chest pain Qualifiers: Chest pain type: other chest pain Qualified Code(s): R07.89 - Other chest pain; R07.8 - Other chest pain Instructions: Heart Attack, [id number] Forms: ED Department Discharge Additional Instructions: patient DC to [place] via [facility] stable at DC and pain free. Sepsis Event Note (ED) - Focused Exam Vital Signs: Vital Signs Temp Pulse Resp BP BP Pulse Ox 05/16/20 11:27 112/71 05/16/20 11:21 117/82 05/16/20 11:20 16 117/82 95 05/16/20 11:00 110 H 113/77 05/16/20 10:38 113/77 05/16/20 10:34 97 F 107 H 18 141/81 H 96 - Problem List Review Problem List Initiated/Reviewed/Updated: Yes - My Orders Last 24 Hours: My Active Orders 05/16/20 10:44 Chest 1V Frontal [CR] Stat 05/16/20 11:26 Nitroglycerin [Nitrostat] 0.4 mg SL Q5M PRN 05/16/20 11:45 Heparin Sodium/D5W [Heparin 25,000 Units in D5W 500 ML] 25,000 units in 500 ml IV TITRATE - Assessment/Plan Last 24 Hours: My Active Orders 05/16/20 10:44 Chest 1V Frontal [CR] Stat 05/16/20 11:26 Nitroglycerin [Nitrostat] 0.4 mg SL Q5M PRN 05/16/20 11:45 Heparin Sodium/D5W [Heparin 25,000 Units in D5W 500 ML] 25,000 units in 500 ml IV TITRATE Plan: Spoke with [place] [facility], Dr. Anderson with cardiology, after reviewing today's ekg and most recent in [place], he feels that this is a RBBB and the patient does not need test lab technician activation at this time, but still needs to be transported to [place] ED for further eval. [facility] is enroute. Spoke with accepting Dr. Núñez in the ED, he is expecting the patient. Then I spoke with Dr. Sood another router machine operator to verify starting bolus and drip of heparin, he states he wants ddimer, trop, cxr resulted prior to transport. He gave parameters for heparin_ start bolus and drip if INR <2,
[2020-05-16 11:20] VITALS: PULSE 110
[2020-05-16] MEDS ORDERED: Sodium Chloride 0.9% 1,000 ML IV SCH (11:30)
[2020-05-16 11:32] VITALS: BP 112/71
[2020-05-16] MEDS ORDERED: Heparin Sodium 5,000 Units/ML Vial IVPUSH ONE (11:43)
[2020-05-16] MEDS ORDERED: Heparin Sodium/D5W 25,000 UNITS/500 ML BAG IV SCH (11:45)
--- NOTE | 2020-05-17 11:37 | CR ---
Date of Service: 05/16/20 Clinical Data: chest pain AP CHEST: Comparison is made to a prior exam dated 11/24/19. The patient is status post median sternotomy. The heart size is normal. 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 The left lung remains clear. No pneumothorax. No significant changes from the prior study. [id number] MTDD
== END 2020-05-16 12:15 ==
LOC: LB.ED 10:33
DX: R07.89 Other chest pain (principal); Z20.828 Contact with and (suspected) exposure to other viral communicable diseases; I10 Essential (primary) hypertension; I25.2 Old myocardial infarction; Z91.030 Bee allergy status; Z88.1 Allergy status to other antibiotic agents; Z88.8 Allergy status to other drugs, medicaments and biological substances; Z79.899 Other long term (current) drug therapy
CPT/HCPCS: 36415; 71045; 80053; 84484; 85025; 85379; 85610; 85730; 93005; 96361; 96365; 96375; 99285-25; J1644; J7030; U0002

== ENCOUNTER 2021-02-07 17:25 | Observation (INO) | payer MEDICARE, BC ==
[2021-02-07] MEDS ORDERED: Sodium Chloride 0.9% 10 ML Syringe FLUSH PRN (17:41)
[2021-02-07] MEDS ORDERED: Nitroglycerin 0.4 MG Tab.SL SL ONE (17:41)
--- NOTE | 2021-02-07 17:42 | EDM.PDOC ---
ED HPI GENERAL MEDICAL PROBLEM - General Chief Complaint: Cardiovascular Problem Stated Complaint: chest pain Time Seen by Provider: 02/07/21 17:42 Source of Information: Reports: Patient History Limitations: Reports: No Limitations - History of Present Illness INITIAL COMMENTS - FREE TEXT/NARRATIVE: patient presented to the ER with a c/o left sided chest pain. Pain is in the left area and radiating to the neck. 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 No diaphoresis. no palpitations. 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 no h/o stents placement. Last stress test was chemical and was done 2-3 yrs - he cant recall the result. h/o severe acid reflux with multiple gastric erosions - he isn't on any medications for this due to side effects to PPI. Patient took ASA 325mg and one nitro SL prior to arrival which helped with his symptoms - no pain currently. Onset: Sudden Duration: Hour(s): (3) Location: Reports: Chest Quality: Reports: Pressure, Sharp Severity: Moderate Improves with: Reports: Rest Worsens with: Reports: Movement Left Middle Chest Pain Score (Numeric/FACES): 2 - Related Data Allergies Allergy/AdvReac Type Severity Reaction Status Date / Time celecoxib [From Celebrex] Allergy Hives Verified 02/07/21 17:44 hydrochlorothiazide Allergy Dizziness Verified 02/07/21 17:44 tamsulosin [From Flomax] Allergy Other Verified 02/07/21 17:44 bees Allergy Confusion Uncoded 02/07/21 17:44 Home Meds: Home Meds ALPRAZolam [Alprazolam] 0.5 mg PO BID PRN 04/09/17 [History] Lisinopril 40 mg PO DAILY 04/09/17 [History] Sildenafil [Revatio] 20 mg PO ASDIRECTED PRN 04/09/17 [History] Warfarin Sodium [Jantoven] 5 mg PO ASDIRECTED 04/09/17 [History] atenoloL [Atenolol] 12.5 mg PO BID 07/17/18 [History] Umeclidinium Brm/Vilanterol Tr [Anoro Ellipta 62.5-25 MCG] 1 puff INH DAILY 08/25/19 [History] Flecainide [Tambocor] 50 mg PO BID 05/16/20 [History] dilTIAZem HCL [Cartia Xt] 120 mg PO DAILY 05/16/20 [History] Past Medical History HEENT History: Reports: Epistaxis, Impaired Vision, Other (See Below) Other HEENT History: barett's espohagus Cardiovascular History: Reports: Hypertension, ID, Other (See Below) Other Cardiovascular History: cardiac tumor Respiratory History: Reports: Other (See Below) Other Respiratory History: NOT DIAGNOSED BUT FEELS HE MIGHT HAVE A BRONCHITIS Gastrointestinal History: Reports: GERD Genitourinary History: Reports: BPH Musculoskeletal History: Reports: Other (See Below) Other Musculoskeletal History: POST POLIO LEFT LEG Neurological History: Reports: Other (See Below) Other Neuro History: POLIO LEFT LEG Psychiatric History: Reports: Anxiety Oncologic (Cancer) History: Reports: Other (See Below) 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, tumor removed 2006 - Infectious Disease History Infectious Disease History: Reports: Other (See Below) Other Infectious Disease History: UNSURE - Past Surgical History HEENT Surgical History: Reports: Other (See Below) Other HEENT Surgeries/Procedures: esophageal ablation Cardiovascular Surgical History: Reports: Other (See Below) Other Cardiovascular Surgeries/Procedures: cardiac tumor removal GI Surgical History: Reports: Other (See Below) Other GI Surgeries/Procedures: LINX procedure for GERD Male Surgical History: Reports: Circumcision Social & Family History - Family History Family Medical History: No Pertinent Family History Cardiac: Reports: Heart Failure, ID GI: Reports: GERD Musculoskeletal: Reports: Arthritis, Back pain, Chronic, Neck Pain, Chronic, Osteoarthritis Neurological: Reports: Parkinson's Psychiatric: Reports: Anxiety, Depression Endocrine/Metabolic: Reports: Hyperthyroidism Oncologic: Reports: Breast - Caffeine Use Caffeine Use: Reports: Coffee Caffeine Use Comment: 8 WEEKS SINCE LAST CUP OF COFFEE ED ROS GENERAL - Review of Systems Review Of Systems: See Below Constitutional: Reports: No Symptoms HEENT: Reports: No Symptoms Respiratory: Reports: No Symptoms Cardiovascular: Reports: Chest Pain GI/Abdominal: Reports: No Symptoms Musculoskeletal: Reports: No Symptoms Skin: Reports: No Symptoms Neurological: Reports: No Symptoms ED EXAM, GENERAL - Physical Exam Exam: See Below Exam Limited By: No Limitations General Appearance: Alert, WD/WN, No Apparent Distress Eye Exam: Bilateral Eye: EOMI Head: Atraumatic Neck: Normal Inspection Respiratory/Chest: No Respiratory Distress, Lungs Clear Cardiovascular: Normal Peripheral Pulses, Regular Rate, Rhythm GI/Abdominal: Normal Bowel Sounds, Soft, Non-Tender Neurological: Alert, Oriented, Normal Cognition, No Motor/Sensory Deficits Psychiatric: Normal Affect, Normal Mood #1 Interpretation EKG Date: 02/07/21 Rhythm: NSR [place]: Normal P-Wave: Present QRS: Normal ST-T: Normal QT: Normal Course - Vital Signs Last Recorded V/S: Last Vital Signs Temp 36.6 C 02/07/21 17:39 Pulse 63 02/07/21 18:41 Resp 16 02/07/21 18:41 BP 140/80 02/07/21 18:41 Pulse Ox 96 02/07/21 18:41 - Orders/Labs/Meds Orders: Active Orders 24 hr Category Date Time Status Cardiac Monitoring [RC] .As Directed Care 02/07/21 17:35 Active EKG Documentation Completion [RC] ASDIRECTED Care 02/07/21 17:33 Active CXR [Chest 1V Frontal] [CR] Stat Exams 02/07/21 17:32 Ordered Sodium Chloride 0.9% [Saline Flush] Med 02/07/21 17:41 Active 10 ml FLUSH ASDIRECTED PRN Saline Lock Insert [OM.PC] Routine Oth 02/07/21 17:41 Ordered Medication Orders Sodium Chloride (Sodium Chloride 0.9% 10 Ml Syringe) 10 ml FLUSH ASDIRECTED PRN PRN Reason: Keep Vein Open Labs: Laboratory Tests 02/07/21 02/07/21 02/07/21 Range/Units 17:31 17:35 18:15 WBC 7.3 D (4.0-11.0) K/uL RBC 4.65 (4.50-6.50) M/uL Hgb 14.3 (13.0-18.0) g/dL Hct 42.8 (40.0-54.0) % MCV 92 (76-96) fL MCH 30.8 (27.0-32.0) pg MCHC 33.4 (31.0-35.0) g/dL RDW 13.5 (11.0-16.0) % Plt Count 181 (150-400) K/uL MPV 10.9 H (6.0-10.0) fL Neut % (Auto) 60.0 (45.0-70.0) % Lymph % (Auto) 29.3 (20.0-40.0) % [place] % (Auto) 9.1 (3.0-10.0) % Eos % (Auto) 1.0 (1.0-5.0) % Baso % (Auto) 0.6 H (0.0-0.5) % Neut # (Auto) 4.36 (2.00-7.50) K/uL Lymph # (Auto) 2.13 (1.50-4.00) K/uL [place] # (Auto) 0.66 (0.20-0.80) K/uL Eos # (Auto) 0.07 (0.04-0.40) K/uL Baso # (Auto) 0.04 (0.02-0.10) K/uL Whole Blood INR (1.0-3.5) Sodium 142 (136-145) mmol/L Potassium 4.3 (3.5-5.1) mmol/L Chloride 107 (98-107) mmol/L Carbon Dioxide 24.4 (21.0-32.0) mmol/L Anion Gap 14.9 (5.0-15.0) mmol/L BUN 25 (8-26) mg/dL Creatinine 1.22 (0.70-1.30) mg/dL Est Cr Clr Drug Dosing 60.96 mL/min Estimated GFR (MDRD) 59 L (>60) MLS/MIN BUN/Creatinine Ratio 20.5 (6-25) Glucose 108 H (74-100) mg/dL Calcium 8.9 (8.5-10.1) mg/dL Total Bilirubin 0.5 (0.0-1.0) mg/dL AST 21 (15-37) U/L ALT 35 (12-78) U/L Alkaline Phosphatase 63 (46-116) U/L Troponin I < 0.017 (0.000-0.060) ng/mL Total Protein 7.0 (6.4-8.2) g/dL Albumin 3.7 (3.4-5.0) g/dL Globulin 3.3 (2.2-4.2) g/dL Albumin/Globulin Ratio 1.1 (0.8-2.0) SARS-CoV-2 RNA (ANJEL) Negative (NEGATIVE) 02/07/21 Range/Units 18:15 WBC (4.0-11.0) K/uL RBC (4.50-6.50) M/uL Hgb (13.0-18.0) g/dL Hct (40.0-54.0) % MCV (76-96) fL MCH (27.0-32.0) pg MCHC (31.0-35.0) g/dL RDW (11.0-16.0) % Plt Count (150-400) K/uL MPV (6.0-10.0) fL Neut % (Auto) (45.0-70.0) % Lymph % (Auto) (20.0-40.0) % [place] % (Auto) (3.0-10.0) % Eos % (Auto) (1.0-5.0) % Baso % (Auto) (0.0-0.5) % Neut # (Auto) (2.00-7.50) K/uL Lymph # (Auto) (1.50-4.00) K/uL [place] # (Auto) (0.20-0.80) K/uL Eos # (Auto) (0.04-0.40) K/uL Baso # (Auto) (0.02-0.10) K/uL Whole Blood INR 2.8 (1.0-3.5) Sodium (136-145) mmol/L Potassium (3.5-5.1) mmol/L Chloride (98-107) mmol/L Carbon Dioxide (21.0-32.0) mmol/L Anion Gap (5.0-15.0) mmol/L BUN (8-26) mg/dL Creatinine (0.70-1.30) mg/dL Est Cr Clr Drug Dosing mL/min Estimated GFR (MDRD) (>60) MLS/MIN BUN/Creatinine Ratio (6-25) Glucose (74-100) mg/dL Calcium (8.5-10.1) mg/dL Total Bilirubin (0.0-1.0) mg/dL AST (15-37) U/L ALT (12-78) U/L Alkaline Phosphatase (46-116) U/L Troponin I (0.000-0.060) ng/mL Total Protein (6.4-8.2) g/dL Albumin (3.4-5.0) g/dL Globulin (2.2-4.2) g/dL Albumin/Globulin Ratio (0.8-2.0) SARS-CoV-2 RNA (ANJEL) (NEGATIVE) Meds: Medications Generic Name Dose Route Start Last Admin Trade Name Freq PRN Reason Stop Dose Admin Sodium Chloride 10 ml 02/07/21 17:41 Sodium Chloride 0.9% 10 Ml Syringe FLUSH ASDIRECTED PRN Keep Vein Open Discontinued Medications Generic Name Dose Route Start Last Admin Trade Name Freq PRN Reason Stop Dose Admin Al Hydroxide/Mg Hydroxide 30 ml 02/07/21 18:07 02/07/21 18:09 Gi Cocktail Oral Solution 30 Ml PO 02/07/21 18:08 30 ml ONETIME ONE Administration Nitroglycerin 0.4 mg 02/07/21 17:41 02/07/21 18:11 Nitroglycerin 0.4 Mg Tab.Sl SL 02/07/21 17:42 Not Given ONETIME ONE - Re-Assessments/Exams Free Text/Narrative Re-Assessment/Exam: vitals WNL EKG NSR no ischemic changes lasb were ordered - including CBC, CMP, and trop All WNL inlcuding trop no pain at the current moment - except for mild epigastric burning sensation that resolved with GI cocktail given the nature of pain and patient's age - will follow CP protocol and trend troponin x3 q4hrs admission to floor for observation overnight Departure - Departure Time of Disposition: 18:58 Disposition: Refer to Observation Condition: Good Clinical Impression: Angina of effort Chest pain Qualifiers: Chest pain type: other chest pain Qualified Code(s): R07.89 - Other chest pain Forms: ED Department Discharge Sepsis Event Note (ED) - Evaluation Sepsis Screening Result: No Definite Risk - Focused Exam Vital Signs: Vital Signs Temp Pulse Resp BP BP Pulse Ox 02/07/21 18:41 63 16 140/80 96 02/07/21 18:21 62 18 130/79 02/07/21 18:11 132/77 02/07/21 17:46 66 18 129/74 95 02/07/21 17:39 36.6 C 62 16 137/71 96 02/07/21 17:36 36.6 C 16 137/71 95 - Problem List & Annotations (1) Chest discomfort SNOMED Code(s): 376637056 Code(s): R07.89 - OTHER CHEST PAIN Status: Acute Priority: Medium Current Visit: Yes (2) Angina of effort SNOMED Code(s): 578759546 Code(s): I20.8 - OTHER FORMS OF ANGINA PECTORIS Status: Acute Priority: Low Current Visit: Yes - Problem List Review Problem List Initiated/Reviewed/Updated: Yes - My Orders Last 24 Hours: My Active Orders 02/07/21 17:32 CXR [Chest 1V Frontal] [CR] Stat 02/07/21 17:41 Sodium Chloride 0.9% [Saline Flush] 10 ml FLUSH ASDIRECTED PRN Saline Lock Insert [OM.PC] Routine - Assessment/Plan Last 24 Hours: My Active Orders 02/07/21 17:32 CXR [Chest 1V Frontal] [CR] Stat 02/07/21 17:41 Sodium Chloride 0.9% [Saline Flush] 10 ml FLUSH ASDIRECTED PRN Saline Lock Insert [OM.PC] Routine Plan: - admit to observation - trop q4 hr - tele bed - resume home meds if troponin repeat retuned elevated - 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
[2021-02-07] MEDS ORDERED: GI Cocktail Oral Solution 30 ML PO ONE (18:07)
[2021-02-07] MEDS ORDERED: Non-Formulary Medication 1 Each (Alprazolam [Alprazolam] 0.5 MG Tablet) PO PRN (19:03)
[2021-02-07] MEDS ORDERED: Warfarin 5 MG Tab PO SCH (19:15)
[2021-02-07] MEDS ORDERED: Atenolol 25 MG Tab PO SCH (20:00)
[2021-02-07] MEDS ORDERED: Flecainide 50 MG Tab PO SCH (20:00)
[2021-02-08 07:31] VITALS: BP 127/66; PULSE 64
[2021-02-08] MEDS ORDERED: Non-Formulary Medication 1 Each (Umeclidinium Brm/Vilanterol Tr [Anoro Ellipta 62.5-25 Mcg INH SCH (08:00)
[2021-02-08] MEDS ORDERED: Diltiazem 120 MG Cap.CD PO SCH (08:00)
[2021-02-08] MEDS ORDERED: Lisinopril 20 MG Tab PO SCH (08:00)
--- NOTE | 2021-02-08 08:53 | PCM.DCSUM1 ---
Discharge Summary - Hospital Course HPI Initial Comments: patient presented to the ER with a c/o left sided chest pain - radiating to the left neck. no h/o CAD, but has a h/o severe acid reflux -no currently on medical treatment - and a h/o COPD. EKG in the ER was WNL. CXR WNL. Initial trop was normal. His symptoms resolved after taking NTG SL at home prior coming to the ER - for this reason - he was refereed to observation for trop trend. Diagnosis: Stroke: No - Discharge Data Discharge Date: 02/08/21 Discharge Disposition: Home, Self-Care 01 Condition: Good - Referral to Home Health Primary Care Physician: PCP None - Discharge Diagnosis/Problem(s) (1) Chest discomfort SNOMED Code(s): 629169774 ICD Code: R07.89 - OTHER CHEST PAIN Status: Acute Priority: Medium Current Visit: Yes (2) Angina of effort SNOMED Code(s): 134803665 ICD Code: I20.8 - OTHER FORMS OF ANGINA PECTORIS Status: Acute Priority: Low Current Visit: Yes - Patient Summary/Data Hospital Course: patient was connected to a monitor. Labs were ordered - including Trop q6hr. All returned WNL. Patient remained symptoms free throughout his stay. vitals WNL. Tolerated PO intake. - Patient Instructions Diet: Heart Healthy Diet Driving: May Drive Today - Discharge Plan *PRESCRIPTION DRUG MONITORING PROGRAM REVIEWED*: Not Applicable *COPY OF PRESCRIPTION DRUG MONITORING REPORT IN PATIENT MJ: Not Applicable Home Medications: Home Meds ALPRAZolam [Alprazolam] 0.5 mg PO BID PRN 04/09/17 [History] Lisinopril 40 mg PO DAILY 04/09/17 [History] Sildenafil [Revatio] 20 mg PO ASDIRECTED PRN 04/09/17 [History] Warfarin Sodium [Jantoven] 5 mg PO ASDIRECTED 04/09/17 [History] atenoloL [Atenolol] 12.5 mg PO BID 03/19/18 [History] Umeclidinium Brm/Vilanterol Tr [Anoro Ellipta 62.5-25 MCG] 1 puff INH DAILY 08/25/19 [History] Flecainide [Tambocor] 50 mg PO BID 05/16/20 [History] dilTIAZem HCL [Cartia Xt] 120 mg PO DAILY 05/16/20 [History] Forms: ED Department Discharge - Discharge Summary/Plan Comment DC Time >30 min.: No - General Info Date of Service: 02/08/21 Functional Status: Reports: Pain Controlled, Tolerating Diet, Ambulating, Urinating, New Symptoms - Review of Systems General: Reports: No Symptoms HEENT: Reports: No Symptoms Pulmonary: Reports: No Symptoms Cardiovascular: Reports: No Symptoms Gastrointestinal: Reports: No Symptoms Genitourinary: Reports: No Symptoms Musculoskeletal: Reports: No Symptoms Skin: Reports: No Symptoms Neurological: Reports: No Symptoms - Patient Data Vitals - Most Recent: Last Vital Signs Temp 36.6 C 02/08/21 07:27 Pulse 64 02/08/21 07:27 Resp 18 02/08/21 07:27 BP 127/66 02/08/21 07:27 Pulse Ox 97 02/08/21 07:27 Weight - Most Recent: 100.698 kg Lab Results - Last 24 hrs: Laboratory Results - last 24 hr 02/07/21 02/07/21 02/07/21 Range/Units 17:31 17:35 18:15 WBC 7.3 D (4.0-11.0) K/uL RBC 4.65 (4.50-6.50) M/uL Hgb 14.3 (13.0-18.0) g/dL Hct 42.8 (40.0-54.0) % MCV 92 (76-96) fL MCH 30.8 (27.0-32.0) pg MCHC 33.4 (31.0-35.0) g/dL RDW 13.5 (11.0-16.0) % Plt Count 181 (150-400) K/uL MPV 10.9 H (6.0-10.0) fL Neut % (Auto) 60.0 (45.0-70.0) % Lymph % (Auto) 29.3 (20.0-40.0) % [place] % (Auto) 9.1 (3.0-10.0) % Eos % (Auto) 1.0 (1.0-5.0) % Baso % (Auto) 0.6 H (0.0-0.5) % Neut # (Auto) 4.36 (2.00-7.50) K/uL Lymph # (Auto) 2.13 (1.50-4.00) K/uL [place] # (Auto) 0.66 (0.20-0.80) K/uL Eos # (Auto) 0.07 (0.04-0.40) K/uL Baso # (Auto) 0.04 (0.02-0.10) K/uL Whole Blood INR (1.0-3.5) Sodium 142 (136-145) mmol/L Potassium 4.3 (3.5-5.1) mmol/L Chloride 107 (98-107) mmol/L Carbon Dioxide 24.4 (21.0-32.0) mmol/L Anion Gap 14.9 (5.0-15.0) mmol/L BUN 25 (8-26) mg/dL Creatinine 1.22 (0.70-1.30) mg/dL Est Cr Clr Drug Dosing 60.96 mL/min Estimated GFR (MDRD) 59 L (>60) MLS/MIN BUN/Creatinine Ratio 20.5 (6-25) Glucose 108 H (74-100) mg/dL Calcium 8.9 (8.5-10.1) mg/dL Total Bilirubin 0.5 (0.0-1.0) mg/dL AST 21 (15-37) U/L ALT 35 (12-78) U/L Alkaline Phosphatase 63 (46-116) U/L Troponin I < 0.017 (0.000-0.060) ng/mL Total Protein 7.0 (6.4-8.2) g/dL Albumin 3.7 (3.4-5.0) g/dL Globulin 3.3 (2.2-4.2) g/dL Albumin/Globulin Ratio 1.1 (0.8-2.0) SARS-CoV-2 RNA (ANJEL) Negative (NEGATIVE) 02/07/21 02/07/21 02/08/21 Range/Units 18:15 22:00 07:15 WBC (4.0-11.0) K/uL RBC (4.50-6.50) M/uL Hgb (13.0-18.0) g/dL Hct (40.0-54.0) % MCV (76-96) fL MCH (27.0-32.0) pg MCHC (31.0-35.0) g/dL RDW (11.0-16.0) % Plt Count (150-400) K/uL MPV (6.0-10.0) fL Neut % (Auto) (45.0-70.0) % Lymph % (Auto) (20.0-40.0) % [place] % (Auto) (3.0-10.0) % Eos % (Auto) (1.0-5.0) % Baso % (Auto) (0.0-0.5) % Neut # (Auto) (2.00-7.50) K/uL Lymph # (Auto) (1.50-4.00) K/uL [place] # (Auto) (0.20-0.80) K/uL Eos # (Auto) (0.04-0.40) K/uL Baso # (Auto) (0.02-0.10) K/uL Whole Blood INR 2.8 (1.0-3.5) Sodium (136-145) mmol/L Potassium (3.5-5.1) mmol/L Chloride (98-107) mmol/L Carbon Dioxide (21.0-32.0) mmol/L Anion Gap (5.0-15.0) mmol/L BUN (8-26) mg/dL Creatinine (0.70-1.30) mg/dL Est Cr Clr Drug Dosing mL/min Estimated GFR (MDRD) (>60) MLS/MIN BUN/Creatinine Ratio (6-25) Glucose (74-100) mg/dL Calcium (8.5-10.1) mg/dL Total Bilirubin (0.0-1.0) mg/dL AST (15-37) U/L ALT (12-78) U/L Alkaline Phosphatase (46-116) U/L Troponin I < 0.017 < 0.017 (0.000-0.060) ng/mL Total Protein (6.4-8.2) g/dL Albumin (3.4-5.0) g/dL Globulin (2.2-4.2) g/dL Albumin/Globulin Ratio (0.8-2.0) SARS-CoV-2 RNA (ANJEL) (NEGATIVE) Med Orders - Current: Current Medications Atenolol (Atenolol 25 Mg Tab) 12.5 mg PO BID [facility] Last Admin: 02/07/21 19:30 Dose: 12.5 mg Documented by: Diltiazem HCl (Diltiazem 120 Mg Cap.Cd) 120 mg PO DAILY [facility] Flecainide Acetate (Flecainide 50 Mg Tab) 50 mg PO BID [facility] Last Admin: 02/07/21 19:30 Dose: 50 mg Documented by: Lisinopril (Lisinopril 20 Mg Tab) 40 mg PO DAILY [facility] Non-Formulary Medication (Alprazolam [Alprazolam]) 0.5 mg PO BID PRN PRN Reason: unknown Non-Formulary Medication (Umeclidinium Brm/Vilanterol Tr [Anoro Ellipta 62.5-25 Mcg]) 1 puff INH DAILY [facility] Sodium Chloride (Sodium Chloride 0.9% 10 Ml Syringe) 10 ml FLUSH ASDIRECTED PRN PRN Reason: Keep Vein Open Warfarin Sodium (Warfarin 5 Mg Tab) 5 mg PO ASDIRECTED [facility] Discontinued Medications Al Hydroxide/Mg Hydroxide (Gi Cocktail Oral Solution 30 Ml) 30 ml PO ONETIME ONE Stop: 02/07/21 18:08 Last Admin: 02/07/21 18:09 Dose: 30 ml Documented by: Nitroglycerin (Nitroglycerin 0.4 Mg Tab.Sl) 0.4 mg SL ONETIME ONE Stop: 02/07/21 17:42 Last Admin: 02/07/21 18:11 Dose: Not Given Documented by: - Exam General: Reports: Alert, Oriented, Cooperative HEENT: Reports: Pupils Equal Lungs: Reports: Clear to Auscultation, Normal Respiratory Effort Cardiovascular: Reports: Regular Rate, Regular Rhythm GI/Abdominal Exam: Normal Bowel Sounds, Soft, Non-Tender Neurological: Reports: No New Focal Deficit Psy/Mental Status: Reports: Alert, Normal Affect, Normal Mood
--- NOTE | 2021-02-08 09:46 | CR ---
DATE OF SERVICE: 02/07/21 CLINICAL DATA: chest pain AP CHEST: Comparison is made to a prior exam dated 05/16/20. The patient is status post median sternotomy. The heart size is normal. The aorta is ectatic. 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 There is a linear density in the left lung base consistent with linear atelectasis or fibrosis. The lungs are otherwise clear. No pneumothorax. No pleural effusions. [id number] [facility]
[2021-02-08] MEDS ORDERED: ALPRAZolam 0.25 MG Tab PO PRN (11:17)
== END 2021-02-08 10:25 | disposition home or self-care (01) ==
LOC: LB.ED 17:25 → LB.MS 19:00 → UNDOADMOB 19:30 → LB.MS 19:30
PROVIDERS: ADMIT Surgery; ATTEND Surgery
DX: I20.8 Other forms of angina pectoris (principal); I48.91 Unspecified atrial fibrillation; I10 Essential (primary) hypertension; I25.2 Old myocardial infarction; Z79.82 Long term (current) use of aspirin; Z88.8 Allergy status to other drugs, medicaments and biological substances; Z91.030 Bee allergy status; Z79.899 Other long term (current) drug therapy; Z79.01 Long term (current) use of anticoagulants; Z20.822 Contact with and (suspected) exposure to COVID-19
CPT/HCPCS: 36415; 71045; 80053; 84484; 85025; 85610; 93005; 99285; A9270; G0378; U0002; 93010; 99217; 99219; 99284

== ENCOUNTER 2022-03-09 12:08 | Emergency (ER) | payer MEDICARE, BC ==
[2022-03-09 12:57] VITALS: BP 135/79; PULSE 65
== END 2022-03-09 13:42 | disposition home or self-care (01) ==
LOC: LB.ED 12:08
DX: S61.051A Open bite of right thumb without damage to nail, initial encounter (principal); I10 Essential (primary) hypertension; I25.2 Old myocardial infarction; Z91.030 Bee allergy status; Z88.6 Allergy status to analgesic agent; Z88.8 Allergy status to other drugs, medicaments and biological substances; Z79.899 Other long term (current) drug therapy; Z79.01 Long term (current) use of anticoagulants; W55.01XA Bitten by cat, initial encounter
CPT/HCPCS: 99281; 99283

== ENCOUNTER 2022-03-15 02:19 | Emergency (ER) | payer MEDICARE, BC ==
[2022-03-15] MEDS: Diltiazem 25 MG/5 ML SDV IVPUSH ONE (02:39)
[2022-03-15] MEDS: Sodium Chloride 0.9% 1,000 ML IV ONE (02:46)
[2022-03-15] MEDS: Diltiazem 50 MG/10 ML SDV IVPUSH ONE (02:51)
[2022-03-15] MEDS: Atenolol 25 MG Tab PO ONE ×2 (03:09→03:10)
[2022-03-15 04:17] VITALS: BP 127/75; PULSE 72
== END 2022-03-15 03:55 | disposition home or self-care (01) ==
LOC: LB.ED 02:19
DX: I48.20 Chronic atrial fibrillation, unspecified (principal); I10 Essential (primary) hypertension; I25.2 Old myocardial infarction; I25.10 Atherosclerotic heart disease of native coronary artery without angina pectoris; Z91.030 Bee allergy status; Z88.8 Allergy status to other drugs, medicaments and biological substances; Z79.899 Other long term (current) drug therapy; Z79.01 Long term (current) use of anticoagulants
CPT/HCPCS: 36415; 80053; 84484; 85025; 85610; 93005; 96361; 96374; 99285-25; A9270-GY; J3490; J7030

== ENCOUNTER 2023-10-15 14:17 | Emergency (ER) | payer MEDICARE, BC ==
[2023-10-15] MEDS: GI Cocktail Oral Solution 30 ML PO ONE (15:00)
[2023-10-15 15:04] LABS: BASOPHILS ABSOLUTE AUTO 0.03 K/uL (0.02-0.10); BASOPHILS PERCENT AUTO 0.5 % (0.0-0.5); EOSINOPHILS ABSOLUTE AUTO 0.05 K/uL (0.04-0.40); EOSINOPHILS PERCENT AUTO 0.9 % (1.0-5.0); HEMATOCRIT 36.9 % (40.0-54.0); LYMPHOCYTES ABSOLUTE AUTO 1.68 K/uL (1.50-4.00); MEAN CORPUSCULAR HGB CONC 35.2 g/dL (31.0-35.0); MEAN CORPUSCULAR VOLUME 85 fL (76-96); MEAN PLATELET VOLUME 10.6 fL (6.0-10.0); MONOCYTES ABSOLUTE AUTO 0.51 K/uL (0.20-0.80); MONOCYTES PERCENT AUTO 8.8 % (3.0-10.0); NEUTROPHILS ABSOLUTE AUTO 3.52 K/uL (2.00-7.50); NEUTROPHILS PERCENT AUTO 60.8 % (45.0-70.0); PLATELET COUNT,PLT 157 K/uL (150-400); RED BLOOD CELL COUNT 4.33 M/uL (4.50-6.50); RED CELL DISTRIBUTION WIDTH 13.3 % (11.0-16.0); WHITE BLOOD CELL COUNT,WBC 5.8 K/uL (4.0-11.0)
[2023-10-15 15:11] VITALS: BP 140/71; PULSE 88
[2023-10-15] MEDS: Lidocaine 2% Viscous Solution 15 ML UD PO ONE (15:12)
[2023-10-15 15:18] LABS: INR 2.5 (1.0-3.5)
[2023-10-15 15:22] LABS: A/G RATIO 1.3 (0.8-2.0); ALBUMIN 3.6 g/dL (3.4-5.0); ANION GAP 14.5 mmol/L (5.0-15.0); BILIRUBIN TOTAL 0.4 mg/dL (0.0-1.0); BUN/CREATININE RATIO 11.9 (6-25); CALCIUM 8.8 mg/dL (8.5-10.1); CARBON DIOXIDE,CO2 24.8 mmol/L (21.0-32.0); CREATININE 1.35 mg/dL (0.70-1.30); EST CRCL DRUG DOSING (CG) 52.69 mL/min; POTASSIUM,K 4.3 mmol/L (3.5-5.1); PROTEIN TOTAL,TP 6.4 g/dL (6.4-8.2); PROTHROMBIN TIME 24.8 sec (9.0-11.5)
[2023-10-17] MEDS: Aluminum Hydroxide/Magnesium Hydroxide/Simethicone 355 ML Bottle PO ONE (07:49)
== END 2023-10-15 16:43 | disposition home or self-care (01) ==
LOC: LB.ED 14:17
DX: K21.9 Gastro-esophageal reflux disease without esophagitis (principal); I10 Essential (primary) hypertension; I25.2 Old myocardial infarction; Z91.030 Bee allergy status; Z88.2 Allergy status to sulfonamides; Z88.8 Allergy status to other drugs, medicaments and biological substances; Z88.6 Allergy status to analgesic agent; Z79.01 Long term (current) use of anticoagulants; Z79.899 Other long term (current) drug therapy
CPT/HCPCS: 36415; 71046; 80053; 84484; 85025; 85610; 93005; 99285; A9270-GY

== ENCOUNTER 2024-01-19 09:25 | Emergency (ER) | payer MEDICARE, BC ==
[2024-01-19] MEDS ORDERED: Sodium Chloride 0.9% 10 ML Syringe FLUSH PRN (09:51)
[2024-01-19 09:54] LABS: BASOPHILS ABSOLUTE AUTO 0.04 K/uL (0.02-0.10); BASOPHILS PERCENT AUTO 0.7 % (0.0-0.5); EOSINOPHILS ABSOLUTE AUTO 0.14 K/uL (0.04-0.40); EOSINOPHILS PERCENT AUTO 2.4 % (1.0-5.0); HEMATOCRIT 41.3 % (40.0-54.0); HEMOGLOBIN 13.3 g/dL (13.0-18.0); LYMPHOCYTES ABSOLUTE AUTO 2.09 K/uL (1.50-4.00); LYMPHOCYTES PERCENT AUTO 36.3 % (20.0-40.0); MEAN CORPUSCULAR HEMOGLOBIN 29.9 pg (27.0-32.0); MEAN CORPUSCULAR HGB CONC 32.2 g/dL (31.0-35.0); MEAN CORPUSCULAR VOLUME 93 fL (76-96); MEAN PLATELET VOLUME 10.7 fL (6.0-10.0); MONOCYTES ABSOLUTE AUTO 0.71 K/uL (0.20-0.80); MONOCYTES PERCENT AUTO 12.3 % (3.0-10.0); NEUTROPHILS ABSOLUTE AUTO 2.78 K/uL (2.00-7.50); NEUTROPHILS PERCENT AUTO 48.3 % (45.0-70.0); PLATELET COUNT,PLT 157 K/uL (150-400); RED BLOOD CELL COUNT 4.45 M/uL (4.50-6.50); RED CELL DISTRIBUTION WIDTH 13.9 % (11.0-16.0); WHITE BLOOD CELL COUNT,WBC 5.8 K/uL (4.0-11.0)
[2024-01-19 10:21] LABS: INR 2.6 (1.0-3.5)
[2024-01-19 10:23] LABS: A/G RATIO 1.3 (0.8-2.0); ALBUMIN 3.6 g/dL (3.4-5.0); ANION GAP 14.8 mmol/L (5.0-15.0); BILIRUBIN TOTAL 0.7 mg/dL (0.0-1.0); BUN/CREATININE RATIO 16.9 (6-25); CALCIUM 8.4 mg/dL (8.5-10.1); CARBON DIOXIDE,CO2 24.2 mmol/L (21.0-32.0); CREATININE 1.18 mg/dL (0.70-1.30); EST CRCL DRUG DOSING (CG) 60.28 mL/min; PROTEIN TOTAL,TP 6.3 g/dL (6.4-8.2); PROTHROMBIN TIME 25.6 sec (9.0-11.5); TROPONIN I HIGH SENSITIVITY 6.4 pg/ml (<=60.4); TSH ULTRASENSITIVE 1.114 uIU/mL (0.358-3.740)
[2024-01-19 10:47] LABS: APPEARANCE,URINE CLEAR (CLEAR); BILIRUBIN,URINE NEGATIVE (NEGATIVE); COLOR,URINE YELLOW; GLUCOSE,URINE NEGATIVE (NEGATIVE); KETONES,URINE NEGATIVE (NEGATIVE); LEUKOCYTE ESTERASE,URINE NEGATIVE (NEGATIVE); NITRITE,URINE NEGATIVE (NEGATIVE); OCCULT BLOOD,URINE TRACE-LYSED (NEGATIVE); PH,URINE 6.5 (5.0-8.0); PROTEIN,URINE NEGATIVE (NEGATIVE); UROBILINOGEN,URINE 0.2 E.U./dL (0.2-1.0)
[2024-01-19 10:53] LABS: RBC,URINE 0-5 /HPF; SQUAMOUS EPITHELIAL CELLS,UR OCCASIONAL /HPF; WBC,URINE 0-5 /HPF
[2024-01-19 13:26] VITALS: BP 132/75; PULSE 60
== END 2024-01-19 11:19 | disposition home or self-care (01) ==
LOC: LB.ED 09:25
DX: I49.3 Ventricular premature depolarization (principal); I48.91 Unspecified atrial fibrillation; I48.92 Unspecified atrial flutter; I10 Essential (primary) hypertension; Z79.01 Long term (current) use of anticoagulants
CPT/HCPCS: 36415; 71045; 80053; 81001; 83735; 84443; 84484; 85025; 85610; 93005; 99285

== ENCOUNTER 2024-06-15 20:38 | Emergency (ER) | payer MEDICARE, BC ==
[2024-06-15 21:27] LABS: BASOPHILS ABSOLUTE AUTO 0.03 K/uL (0.02-0.10); BASOPHILS PERCENT AUTO 0.4 % (0.0-0.5); EOSINOPHILS ABSOLUTE AUTO 0.07 K/uL (0.04-0.40); EOSINOPHILS PERCENT AUTO 0.9 % (1.0-5.0); HEMATOCRIT 41.1 % (40.0-54.0); HEMOGLOBIN 13.4 g/dL (13.0-18.0); LYMPHOCYTES ABSOLUTE AUTO 2.25 K/uL (1.50-4.00); LYMPHOCYTES PERCENT AUTO 29.3 % (20.0-40.0); MEAN CORPUSCULAR HEMOGLOBIN 30.5 pg (27.0-32.0); MEAN CORPUSCULAR HGB CONC 32.6 g/dL (31.0-35.0); MEAN CORPUSCULAR VOLUME 94 fL (76-96); MEAN PLATELET VOLUME 11.8 fL (6.0-10.0); MONOCYTES ABSOLUTE AUTO 0.83 K/uL (0.20-0.80); MONOCYTES PERCENT AUTO 10.8 % (3.0-10.0); NEUTROPHILS ABSOLUTE AUTO 4.51 K/uL (2.00-7.50); NEUTROPHILS PERCENT AUTO 58.6 % (45.0-70.0); PLATELET COUNT,PLT 145 K/uL (150-400); RED BLOOD CELL COUNT 4.39 M/uL (4.50-6.50); RED CELL DISTRIBUTION WIDTH 14.6 % (11.0-16.0); WHITE BLOOD CELL COUNT,WBC 7.7 K/uL (4.0-11.0)
[2024-06-15 21:45] LABS: A/G RATIO 1.2 (0.8-2.0); ALBUMIN 3.5 g/dL (3.4-5.0); ANION GAP 14.4 mmol/L (5.0-15.0); BILIRUBIN TOTAL 0.6 mg/dL (0.0-1.0); BUN/CREATININE RATIO 9.2 (6-25); CALCIUM 8.6 mg/dL (8.5-10.1); CARBON DIOXIDE,CO2 26.6 mmol/L (21.0-32.0); CREATININE 1.3 mg/dL (0.70-1.30); EST CRCL DRUG DOSING (CG) 53.89 mL/min; PROTEIN TOTAL,TP 6.3 g/dL (6.4-8.2)
[2024-06-15 21:47] LABS: MAGNESIUM 2.1 mg/dL (1.8-2.4); TROPONIN I HIGH SENSITIVITY 26.2 pg/ml (<=60.4)
[2024-06-15 21:57] LABS: INR 2.1 (1.0-3.5); PTT,PARTIAL THROMBOPLSTIN TIME 28.3 SECONDS (24.4-33.2)
[2024-06-15 21:58] LABS: PROTHROMBIN TIME 20.6 sec (9.0-11.5)
[2024-06-16 00:01] VITALS: BP 156/85; PULSE 60
[2024-06-16] MEDS: Atropine 0.4 MG/ML SDV IVPUSH ONE (10:06)
== END 2024-06-16 00:34 ==
LOC: LB.ED 20:38
DX: R00.1 Bradycardia, unspecified (principal); I48.91 Unspecified atrial fibrillation; I25.2 Old myocardial infarction; K21.9 Gastro-esophageal reflux disease without esophagitis; Z79.899 Other long term (current) drug therapy; Z79.01 Long term (current) use of anticoagulants; Z88.1 Allergy status to other antibiotic agents; Z88.8 Allergy status to other drugs, medicaments and biological substances; Z91.030 Bee allergy status
CPT/HCPCS: 36415; 80053; 83735; 84484; 85025; 85379; 85610; 85730; 93005; 93010; 99285

== ENCOUNTER 2024-12-14 15:49 | Emergency (ER) | payer MEDICARE, BC ==
[2024-12-14 16:59] VITALS: BP 129/73; PULSE 67
== END 2024-12-14 16:45 | disposition home or self-care (01) ==
LOC: LB.ED 15:49
DX: S50.11XA Contusion of right forearm, initial encounter (principal); I10 Essential (primary) hypertension; I48.91 Unspecified atrial fibrillation; I25.2 Old myocardial infarction; Z88.1 Allergy status to other antibiotic agents; Z88.8 Allergy status to other drugs, medicaments and biological substances; Z79.01 Long term (current) use of anticoagulants; Z79.899 Other long term (current) drug therapy; Z95.0 Presence of cardiac pacemaker; Z87.891 Personal history of nicotine dependence; X58.XXXA Exposure to other specified factors, initial encounter; Y93.89 Activity, other specified
CPT/HCPCS: 85610; 99283

== ENCOUNTER 2025-01-09 19:31 | Emergency (ER) | payer MEDICARE, BC ==
[2025-01-09] MEDS ORDERED: Sodium Chloride 0.9% 10 ML Syringe FLUSH PRN (20:03)
[2025-01-09 20:26] LABS: HEMATOCRIT 40.5 % (40.0-54.0); HEMOGLOBIN 13.6 g/dL (13.0-18.0); MEAN CORPUSCULAR HEMOGLOBIN 31.7 pg (27.0-32.0); MEAN CORPUSCULAR HGB CONC 33.6 g/dL (31.0-35.0); MEAN PLATELET VOLUME 11.3 fL (6.0-10.0); RED BLOOD CELL COUNT 4.29 M/uL (4.50-6.50); RED CELL DISTRIBUTION WIDTH 14.5 % (11.0-16.0); WHITE BLOOD CELL COUNT,WBC 6.3 K/uL (4.0-11.0)
[2025-01-09 20:54] LABS: ANION GAP 14.3 mmol/L (5.0-15.0); CALCIUM 8.8 mg/dL (8.5-10.1); CARBON DIOXIDE,CO2 27.1 mmol/L (21.0-32.0); CREATININE 1.33 mg/dL (0.70-1.30); EST CRCL DRUG DOSING (CG) 52.67 mL/min; MAGNESIUM 1.8 mg/dL (1.8-2.4); POTASSIUM,K 4.4 mmol/L (3.5-5.1); TROPONIN I HIGH SENSITIVITY 8.4 pg/ml (<=60.4)
[2025-01-09] MEDS ORDERED: Furosemide 20 MG Tab ONE (21:30)
[2025-01-09] MEDS: Furosemide 20 MG Tab PO ONE (21:48)
[2025-01-09 23:52] VITALS: BP 137/87; PULSE 80
== END 2025-01-09 21:54 | disposition home or self-care (01) ==
LOC: LB.ED 19:31
DX: J81.0 Acute pulmonary edema (principal); R79.89 Other specified abnormal findings of blood chemistry; I10 Essential (primary) hypertension; I25.2 Old myocardial infarction; I48.91 Unspecified atrial fibrillation; Z95.0 Presence of cardiac pacemaker; Z88.8 Allergy status to other drugs, medicaments and biological substances; Z91.030 Bee allergy status; Z79.01 Long term (current) use of anticoagulants; Z79.51 Long term (current) use of inhaled steroids; Z79.899 Other long term (current) drug therapy
CPT/HCPCS: 36415; 71045; 80048; 83735; 83880; 84484; 85027; 93005; 93010; 99284; 99285; A9270-GY

== ENCOUNTER 2025-04-08 15:33 | Emergency (ER) | payer MEDICARE, BC ==
[2025-04-08 16:07] LABS: BASOPHILS ABSOLUTE AUTO 0.03 K/uL (0.02-0.10); BASOPHILS PERCENT AUTO 0.5 % (0.0-0.5); EOSINOPHILS ABSOLUTE AUTO 0.04 K/uL (0.04-0.40); EOSINOPHILS PERCENT AUTO 0.6 % (1.0-5.0); LYMPHOCYTES ABSOLUTE AUTO 1.95 K/uL (1.50-4.00); LYMPHOCYTES PERCENT AUTO 29.3 % (20.0-40.0); MEAN PLATELET VOLUME 10.7 fL (6.0-10.0); MONOCYTES ABSOLUTE AUTO 0.51 K/uL (0.20-0.80); MONOCYTES PERCENT AUTO 7.7 % (3.0-10.0); NEUTROPHILS ABSOLUTE AUTO 4.12 K/uL (2.00-7.50); NEUTROPHILS PERCENT AUTO 61.9 % (45.0-70.0); PLATELET COUNT,PLT 158 K/uL (150-400); RED BLOOD CELL COUNT 4.88 M/uL (4.50-6.50); RED CELL DISTRIBUTION WIDTH 13.8 % (11.0-16.0); WHITE BLOOD CELL COUNT,WBC 6.7 K/uL (4.0-11.0)
[2025-04-08] MEDS: Ketorolac 30 MG/ML SDV IM ONE (16:20)
[2025-04-08 16:36] LABS: BLOOD UREA NITROGEN,BUN 19.0 mg/dL (8-26); CARBON DIOXIDE,CO2 26.7 mmol/L (21.0-32.0); CHLORIDE,CL 106.0 mmol/L (98-107); CREATININE 1.36 mg/dL (0.70-1.30); EST CRCL DRUG DOSING (CG) 51.51 mL/min; ESTIMATED GFR 54.0 mL/min (>60); GLUCOSE RANDOM 140.0 mg/dL (74-100); POTASSIUM,K 3.9 mmol/L (3.5-5.1); SODIUM,NA 141.0 mmol/L (136-145); TROPONIN I HIGH SENSITIVITY 7.1 pg/ml (<=60.4)
[2025-04-08] MEDS: GI Cocktail Oral Solution 30 ML PO ONE (17:07)
[2025-04-08 18:10] VITALS: PULSE 66
[2025-04-08 18:11] VITALS: BP 123/78
== END 2025-04-08 17:55 | disposition home or self-care (01) ==
LOC: LB.ED 15:33
DX: K21.9 Gastro-esophageal reflux disease without esophagitis (principal); I10 Essential (primary) hypertension; Z91.030 Bee allergy status; Z88.8 Allergy status to other drugs, medicaments and biological substances; Z79.899 Other long term (current) drug therapy; Z79.01 Long term (current) use of anticoagulants; Z87.891 Personal history of nicotine dependence
CPT/HCPCS: 36415; 80048; 83880; 84484; 85025; 93005; 96372; 99285; A9270; J1885